=== PATIENT | female | born 1965 | race Caucasian/White ===

== ENCOUNTER 2016-07-13 11:02 | Emergency (ER) | payer SELFPAY ==
[2016-07-13] MEDS ORDERED: OXYCODONE-ACETAMINOPHEN 5-325 MG TABLET PO ONE ×2 (11:12→13:29)
--- NOTE | 2016-07-13 11:12 | ER Document Report ---
ED Medical Screen (RME) - General Stated Complaint: POSSIBLE ABSCESS Time seen by provider: 11:10 Mode of Arrival: Ambulatory Information source: Patient Notes: 51-year-old female presents to ED for a abscess to the left side of her face just above her eye which is now affecting her site. And the pain pain is sharp and throbbing with level III out of 5. She is menopausal. States she has had some hot flashes since this started and she has a history of MRSA. I have greeted and performed a rapid initial assessment of this patient. A comprehensive ED assessment and evaluation of the patient, analysis of test results and completion of medical decision making process will be conducted by an additional ED providers. TRAVEL OUTSIDE OF THE [place] IN LAST 30 DAYS: No - Related Data Allergies/Adverse Reactions: Penicillins Allergy (Unknown, Verified 01/30/16 09:28) rash Past Medical History - Past Medical History Cardiac Medical History: Reports: Hx Hypercholesterolemia, Hx Hypertension Neurological Medical History: Reports: Hx Seizures Renal/ Medical History: Reports: Hx Kidney Stones GI Medical History: Reports: Hx Diverticulitis Musculoskeltal Medical History: Reports Hx Arthritis - RA, Reports Hx Fibromyalgia Skin Medical History: Reports Hx Cellulitis Psychiatric Medical History: Reports: Hx Anxiety, Hx Depression - anxiety Traumatic Medical History: Reports: Hx Spine Fracture Past Surgical History: Reports: Hx Section, Hx Orthopedic Surgery - neck x2, Hx Tubal Ligation - Immunizations Hx Diphtheria, Pertussis, Tetanus Vaccination: Yes
--- NOTE | 2016-07-13 11:54 | ER Document Report ---
ED Eye Complaint - General Chief Complaint: Abscess Stated Complaint: POSSIBLE ABSCESS Mode of Arrival: Ambulatory Information source: Patient TRAVEL OUTSIDE OF THE [place] IN LAST 30 DAYS: No - HPI Onset: Other - scrathed the area above her eye 1 week ago but swelling and pain started 4 days ago but has become worse Eye location: Left Injury: Yes Occurred at: Home Quality of pain: Achy, Pressure, Throbbing Severity: Moderate Pain Level: 4 Contact lenses worn: No Associated symptoms: Pain, Other - pain with extraocular movement of the left eye - Related Data Allergies/Adverse Reactions: Penicillins Allergy (Unknown, Verified 07/13/16 11:12) rash Past Medical History - General Information source: Patient - Social History Smoking Status: Never Smoker Chew tobacco use (# tins/day): No Frequency of alcohol use: None Drug Abuse: None Family History: CAD, CVA, Hypertension, Reviewed & Not Pertinent Patient has suicidal ideation: No Patient has homicidal ideation: No - Past Medical History Cardiac Medical History: Reports: Hx Hypercholesterolemia, Hx Hypertension Neurological Medical History: Reports: Hx Seizures Renal/ Medical History: Reports: Hx Kidney Stones. Denies: Hx Peritoneal Dialysis GI Medical History: Reports: Hx Diverticulitis Musculoskeltal Medical History: Reports Hx Arthritis - RA, Reports Hx Fibromyalgia Skin Medical History: Reports Hx Cellulitis Psychiatric Medical History: Reports: Hx Anxiety, Hx Depression - anxiety Traumatic Medical History: Reports: Hx Spine Fracture Past Surgical History: Reports: Hx Section, Hx Orthopedic Surgery - neck x2, Hx Tubal Ligation - Immunizations Hx Diphtheria, Pertussis, Tetanus Vaccination: Yes Review of Systems - Review of Systems Constitutional: No symptoms reported EENT: See HPI. denies: Eye discharge, Tearing, Double vision Cardiovascular: No symptoms reported Respiratory: No symptoms reported Gastrointestinal: No symptoms reported Genitourinary: No symptoms reported Female Genitourinary: No symptoms reported Musculoskeletal: No symptoms reported Skin: No symptoms reported Hematologic/Lymphatic: No symptoms reported Neurological/Psychological: No symptoms reported Physical Exam - Vital signs Vitals: Temp Pulse Resp BP Pulse Ox 98.0 F 72 16 124/83 98 07/13/16 11:09 07/13/16 11:09 07/13/16 11:09 07/13/16 11:09 07/13/16 11:09 - General General appearance: Appears well, Alert In distress: None - HEENT Head: Normocephalic - Skin Skin Temperature: Warm Skin Moisture: Dry Skin Color: Normal Skin Turgor: Elastic Skin irregularity: Tender indurated area Location of irregularity: Face Character of irregularity: Erythematous Irregularity with: Swelling, Tenderness, Warmth, Induration, Inflammation. negative: Lymphangitis, Thickening, Scaling, Well defined border, Crusting, Weeping, Rough texture-sand paper, Pityriasis rosea Course - Re-evaluation Re-evalutation: 07/13/16 23:32 She is a 61-year-old female who is hemodynamically stable, no acute distress and afebrile. After review CT of the orbit there is no concern for CELLULITIS or facial sinuses of her inflammation. Patient has a history of MRSA given her microbiology studies back in March patient will be discharged home for coverage of strep, MRSA and H influenza given it is an EMT infection. Discussed with the patient the inability to use warm packs to help heal the area as well as Motrin for pain. Patient follow-up with her primary care provider in 10-14 days towards the end of her antibiotic course. She is also encouraged to follow up with an parking meter mechanic this week. - Vital Signs Vital signs: Temp Pulse Resp BP Pulse Ox 98.0 F 70 16 125/92 H 97 07/13/16 14:46 07/13/16 14:46 07/13/16 14:46 07/13/16 14:46 07/13/16 14:46 - Laboratory Result Diagrams: 07/13/16 12:10 07/13/16 12:10 Laboratory results interpreted by me: 07/13/16 12:10 RDW 15.2 H - Diagnostic Test Radiology reviewed: Image reviewed, Reports reviewed Discharge - Discharge Clinical Impression: Periorbital cellulitis of left eye Condition: Good Disposition: HOME, SELF-CARE Instructions: Cephalexin ([facility]), MRSA Cellulitis ([facility]), Clindamycin ([facility]), Oral Narcotic Medication ([facility]) Prescriptions: Cephalexin Monohydrate [Keflex 500 mg Capsule] 500 mg PO BID 14 Days Clindamycin HCl 300 mg PO Q8H 14 Days Oxycodone HCl/Acetaminophen [Percocet 5-325 mg Tablet] 1 - 2 tab PO Q4H PRN #15 tablet PRN Reason: Referrals: WILBERTO GILLESPIE [Primary Care Provider] - Follow up in 1 week GERALD BUI DO [ACTIVE STAFF] - Follow up in 1 week (Please see an opthamologist when you complete your antibiotics or in 10 days)
[2016-07-13 12:44] LABS: ABSOLUTE EOSINOPHILS # (AUTO) 0.1 10^3/uL (0.0-0.6); ABSOLUTE LYMPHOCYTES (AUTO) 1.6 10^3/uL (0.5-4.7); ABSOLUTE MONOCYTES (AUTO) 0.8 10^3/uL (0.1-1.4); ABSOLUTE NEUT (AUTO) 6.4 10^3/uL (1.7-8.2); BASOPHILS % (AUTO) 0.5 % (0-2); EOSINOPHILS % (AUTO) 0.9 % (0-6); HEMATOCRIT 40.7 % (36.0-47.0); HEMOGLOBIN 13.2 g/dL (12.0-15.5); HGB HCT DIFFERENCE -1.1; LYMPHOCYTES % (AUTO) 17.8 % (13-45); MEAN CORPUSCULAR HEMOGLOBIN 28.4 pg (27.0-33.4); MEAN CORPUSCULAR HGB CONC 32.6 g/dL (32.0-36.0); MEAN CORPUSCULAR VOLUME 87 fl (80-97); MONOCYTES % (AUTO) 8.8 % (3-13); RED BLOOD COUNT 4.67 10^6/uL (3.72-5.28); RED CELL DISTRIBUTION WIDTH 15.2 % (11.5-14.0); WHITE BLOOD COUNT 8.9 10^3/uL (4.0-10.5)
[2016-07-13 12:57] LABS: ALANINE AMINOTRANSFERASE 17 U/L (9-52); ALBUMIN 3.9 g/dL (3.5-5.0); ALKALINE PHOSPHATASE 72 U/L (38-126); ANION GAP 11 (5-19); ASPARTATE AMINO TRANSFERASE 26 U/L (14-36); BILIRUBIN,TOTAL 0.3 mg/dL (0.2-1.3); BLOOD UREA NITROGEN 18 mg/dL (7-20); CALCIUM 9.7 mg/dL (8.4-10.2); CARBON DIOXIDE 27 mmol/L (22-30); CHLORIDE 102 mmol/L (98-107); CREATININE RESULT 0.71 mg/dL (0.52-1.25); GLUCOSE 102 mg/dL (75-110); POTASSIUM 4.6 mmol/L (3.6-5.0); SODIUM 139.8 mmol/L (137-145); TOTAL PROTEIN 6.8 g/dL (6.3-8.2)
[2016-07-13] MEDS ORDERED: METOCLOPRAMIDE HCL 10 MG TABLET PO ONE (13:29)
[2016-07-13] MEDS ORDERED: CEPHALEXIN 500 MG CAPSULE PO ONE (14:15)
[2016-07-13] MEDS ORDERED: CLINDAMYCIN HCL 150 MG CAPSULE PO ONE (14:15)
[2016-07-13 15:04] VITALS: BP 125/92
== END 2016-07-13 14:55 | disposition home or self-care (01) ==
LOC: ER 11:02
DX: L03.213 Periorbital cellulitis (principal); I10 Essential (primary) hypertension; Z88.0 Allergy status to penicillin; Z86.14 Personal history of Methicillin resistant Staphylococcus aureus infection
CPT/HCPCS: 36415; 70481; 80053; 85025; 99284

== ENCOUNTER 2016-10-06 20:04 | Emergency (ER) | payer SELFPAY ==
[2016-10-06] MEDS ORDERED: HYDROMORPHONE HCL INJ/PF 2 MG/ML AMPULE IM ONE (22:18)
[2016-10-06] MEDS ORDERED: KETOROLAC TROMETHAMINE 60 MG/2 ML SDV IM ONE (22:18)
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
[2016-10-06 23:59] VITALS: BP 147/80
== END 2016-10-06 23:47 | disposition home or self-care (01) ==
LOC: ER 20:04
DX: M54.42 Lumbago with sciatica, left side (principal); M54.9 Dorsalgia, unspecified; M25.552 Pain in left hip; R20.0 Anesthesia of skin
CPT/HCPCS: 99283; 96372; 73502; J1885; J1170

== ENCOUNTER 2016-10-22 18:01 | Emergency (ER) | payer SELFPAY | END 2016-10-22 18:10 | disposition left against medical advice (07) | LOC: ER 18:01 | DX: Z53.21 Procedure and treatment not carried out due to patient leaving prior to being seen by health care provider (principal) ==

== ENCOUNTER 2017-05-23 18:17 | Emergency (ER) | payer SELFPAY ==
--- NOTE | 2017-05-23 19:19 | ER Document Report ---
ED General - General Chief Complaint: Back Pain Stated Complaint: BACK PAIN Time Seen by Provider: 05/23/17 18:20 Mode of Arrival: Medic Information source: Patient Notes: 52-year-old female history of 2 disc bulges who has been seen by surgeons at [facility] for continued back pain presents with complaints of spasms after she bent over and felt a pop sensation in her mid back. Patient notes she has had difficulty with left leg numbness for the past few months. Has not urinated on herself, but states that she has had constipation issues over the past few months as well TRAVEL OUTSIDE OF THE [place] IN LAST 30 DAYS: No - HPI Onset: Just prior to arrival Onset/Duration: Sudden Quality of pain: Achy Severity: Moderate Pain Level: 4 Associated symptoms: Other Exacerbated by: Movement Relieved by: Denies Similar symptoms previously: Yes Recently seen / treated by doctor: Yes - Related Data Allergies/Adverse Reactions: Penicillins Allergy (Unknown, Verified 07/13/16 11:12) rash Past Medical History - Social History Smoking Status: Never Smoker Cigarette use (# per day): No Chew tobacco use (# tins/day): No Smoking Education Provided: No Frequency of alcohol use: None Drug Abuse: None Family History: CAD, CVA, Hypertension, Reviewed & Not Pertinent Patient has suicidal ideation: No Patient has homicidal ideation: No - Past Medical History Cardiac Medical History: Reports: Hx Hypercholesterolemia, Hx Hypertension Neurological Medical History: Reports: Hx Seizures Renal/ Medical History: Reports: Hx Kidney Stones. Denies: Hx Peritoneal Dialysis GI Medical History: Reports: Hx Diverticulitis Musculoskeltal Medical History: Reports Hx Arthritis - RA, Reports Hx Fibromyalgia Skin Medical History: Reports Hx Cellulitis Psychiatric Medical History: Reports: Hx Anxiety, Hx Depression - anxiety Traumatic Medical History: Reports: Hx Spine Fracture Past Surgical History: Reports: Hx Section, Hx Orthopedic Surgery - neck x2, Hx Tubal Ligation - Immunizations Hx Diphtheria, Pertussis, Tetanus Vaccination: Yes Review of Systems - Review of Systems Notes: REVIEW OF SYSTEMS: CONSTITUTIONAL : Denies fever, chills, or sweats. Denies recent illness. EENT: Denies eye, ear, throat, or mouth pain or symptoms. Denies nasal or sinus congestion or discharge. Denies throat, tongue, or mouth swelling or difficulty swallowing. CARDIOVASCULAR: Denies chest pain. Denies palpitations or racing or irregular heart beat. Denies ankle edema. RESPIRATORY: Denies cough, cold, or chest congestion. Denies shortness of breath, difficulty breathing, or wheezing. GASTROINTESTINAL: Denies abdominal pain or distention. Denies nausea, vomiting , or diarrhea. Denies blood in vomitus, stools, or per rectum. Denies black, tarry stools. Denies constipation. GENITOURINARY: Denies difficulty urinating, painful urination, burning, frequency, blood in urine, or discharge. FEMALE GENITOURINARY: Denies vaginal bleeding, heavy or abnormal periods, irregular periods. Denies vaginal discharge or odor. MUSCULOSKELETAL admits to low back pain left leg pain SKIN: Denies rash, lesions or sores. HEMATOLOGIC : Denies easy bruising or bleeding. LYMPHATIC: Denies swollen, enlarged glands. NEUROLOGICAL: Denies confusion or altered mental status. Denies passing out or loss of consciousness. Denies dizziness or lightheadedness. Denies headache. Denies weakness or paralysis or loss of use of either side. Denies problems with gait or speech. Denies sensory loss, numbness, or tingling. Denies seizures. PSYCHIATRIC: Denies anxiety or stress. Denies depression, suicidal ideation, or homicidal ideation. ALL OTHER SYSTEMS REVIEWED AND NEGATIVE. PHYSICAL EXAMINATION: GENERAL: Well-appearing, well-nourished and in no acute distress. HEAD: Atraumatic, normocephalic. EYES: Pupils equal round and reactive to light, extraocular movements intact, conjunctiva are normal. ENT: Nares patent, oropharynx clear without exudates. Moist mucous membranes. NECK: Normal range of motion, supple without lymphadenopathy LUNGS: Breath sounds clear to auscultation bilaterally and equal. No wheezes rales or rhonchi. HEART: Regular rate and rhythm without murmurs ABDOMEN: Soft, nontender, nondistended abdomen. No guarding, no rebound. No masses appreciated. Female : deferred Musculoskeletal: pt unable to sit up without assistance, tender i nthe L3-L5 region NEUROLOGICAL: Cranial nerves grossly intact. Normal speech, normal gait. Normal sensory, motor exams PSYCH: Normal mood, normal affect. SKIN: Warm, Dry, normal turgor, no rashes or lesions noted. Dictation was performed using [employer] voice recognition software Physical Exam - Vital signs Vitals: Temp Pulse Resp BP Pulse Ox 97.9 F 69 20 165/91 H 97 05/23/17 18:28 05/23/17 18:28 05/23/17 18:28 05/23/17 18:28 05/23/17 18:28 Course - Re-evaluation Re-evalutation: 05/23/17 19:19 Given patient's complaint of numbness weakness left lower extremity MRI has been ordered and is pending at this time 05/23/17 21:47 MRI results reported to patient , attempting ot reach patients surgeon 05/23/17 21:51 [facility] states they dont know how to contact the surgeon 05/23/17 22:02 I was able to contact Dr Chandler, he does request dc home for follow up at 830 tomorrow morning, he states this is not an emergent surgical issue 05/23/17 23:11 s patient is happy with this plan, will give another dose pain meds prior to discharge home 05/23/17 23:16 After performing a Medical Screening Examination, I estimate there is LOW risk for EXPANDING OR RUPTURED ABDOMINAL AORTIC ANEURYSM, CAUDA EQUINA SYNDROME, EPIDURAL MASS LESION, or HERNIATED DISK CAUSING SEVERE SPINAL STENOSIS, thus I consider the discharge disposition reasonable. I have reevaluated this patient multiple times and no significant life threatening changes are noted. The patient and I have discussed the diagnosis and risks, and we agree with discharging home and close follow-up. We also discussed returning to the Emergency Department immediately if new or worsening symptoms occur with the understanding that symptoms and presentations can change. We have discussed the symptoms which are most concerning (e.g., saddle anesthesia, urinary or bowel incontinence or retention, changing or worsening pain) that necessitate immediate return. - Vital Signs Vital signs: Temp Pulse Resp BP Pulse Ox 97.9 F 69 20 165/91 H 97 05/23/17 18:28 05/23/17 18:28 05/23/17 18:28 05/23/17 18:28 05/23/17 18:28 - Diagnostic Test Radiology reviewed: Image reviewed, Reports reviewed - Report imaging will be provided to patient Discharge - Discharge Clinical Impression: L4-L5 disc bulge, Left leg paresthesias Condition: Stable Disposition: HOME, SELF-CARE Referrals: KADEEM CHANDLER DO [Primary Care Provider] - Follow up tomorrow
[2017-05-23] MEDS ORDERED: HYDROMORPHONE HCL INJ/PF 2 MG/ML AMPULE IV ONE ×2 (19:46→23:11)
[2017-05-23] MEDS ORDERED: DEXAMETHASONE SOD PHOS INJ 10 MG/1 ML VIAL IV ONE (19:46)
--- NOTE | 2017-05-23 21:35 | RADIOLOGY REPORT (SQ) ---
EXAM DESCRIPTION: MRI LUMBAR SPINE WITHOUT COMPLETED DATE/TIME: 05/23/2017 9:22 pm REASON FOR STUDY: back pain, left leg numb COMPARISON: None. TECHNIQUE: Sagittal and Axial imaging includes T1, T2, STIR and gradient echo sequences. Coronal T2/ HASTE imaging. LIMITATIONS: None. FINDINGS: VISUALIZED UPPER ABDOMEN: Limited evaluation. No acute or suspicious findings suggested. SEGMENTATION: No transitional anatomy. The lowest well-developed disc space is labeled L5-S1. ALIGNMENT: Anatomic. VERTEBRAE: Intact. BONE MARROW: Normal. No marrow replacement or reactive changes. DISC SIGNAL: Loss of T2 signal L5-S1. POSTERIOR ELEMENTS: Generally intact. No pars defect evident. HARDWARE: None in the spine. CORD AND CONUS: Normal in size and signal intensity. Conus at the appropriate level. SOFT TISSUES: No aortic aneurysm seen. No bulky retroperitoneal adenopathy or mass. No paraspinal mas s or fluid. L1-L2: No significant spinal stenosis or exit foraminal stenosis. L2-L3: Mild disc bulge. Mild ligamentous and facet hypertrophy. Mild narrowing of the exit foramina . L3-L4: No significant spinal stenosis or exit foraminal stenosis. L4-L5: No significant spinal stenosis or exit foraminal stenosis. L5-S1: Large left paracentral to foraminal disc extrusion. Deviation of the left L5 root centrally w ith compression. Flattening of the thecal sac leftward. LOWER THORACIC: No significant finding SACRUM: Visualized upper sacrum intact. OTHER: No other significant findings. IMPRESSION: Large left paracentral to foraminal disc extrusion with deviation and flattening of the left L5 root centrally and compression of the thecal sac along the leftward aspect. TECHNICAL DOCUMENTATION: JOB ID: [id number] [employer]- All Rights Reserved
[2017-05-23] MEDS ORDERED: KETOROLAC TROMETHAMINE INJ/PF 30 MG/1 ML SDV IV ONE (21:51)
[2017-05-23] MEDS ORDERED: FENTANYL CITRATE INJ/PF 100 MCG/2 ML AMPUL IV ONE (22:03)
[2017-05-23] MEDS ORDERED: HYDROCODONE/ACETAMINOPHEN 5-325 MG 6 TAB/DSPK PO PRN (23:17)
[2017-05-23 23:43] VITALS: BP 149/82
== END 2017-05-23 23:46 | disposition home or self-care (01) ==
LOC: ER 18:17
DX: M51.26 Other intervertebral disc displacement, lumbar region (principal); R20.0 Anesthesia of skin; M54.9 Dorsalgia, unspecified
CPT/HCPCS: 96376; 99284; 96374; 96375; 72148; J3010; J1885; J1170; J1100

== ENCOUNTER 2017-07-31 15:00 | Emergency (ER) | payer SELFPAY ==
--- NOTE | 2017-07-31 16:42 | RADIOLOGY REPORT (SQ) ---
EXAM DESCRIPTION: FOOT LEFT COMPLETE COMPLETED DATE/TIME: 07/31/2017 4:12 pm REASON FOR STUDY: pain COMPARISON: None. NUMBER OF VIEWS: Three views. TECHNIQUE: AP, lateral and oblique radiographic images acquired of the left foot. LIMITATIONS: None. FINDINGS: MINERALIZATION: Normal. BONES: No acute fracture or dislocation. No worrisome bone lesions. JOINTS: No effusions. SOFT TISSUES: No soft tissue swelling. No foreign body. OTHER: No other significant finding. IMPRESSION: NEGATIVE STUDY OF THE LEFT FOOT. NO RADIOGRAPHIC EVIDENCE OF ACUTE INJURY. TECHNICAL DOCUMENTATION: JOB ID: [id number] [employer]- All Rights Reserved
--- NOTE | 2017-07-31 16:43 | ER Document Report ---
ED Extremity Problem, Lower - General Chief Complaint: Foot Injury Stated Complaint: FOOT INJURY Time Seen by Provider: 07/31/17 16:21 Notes: 52 yo female c/o left foot pain x 5 days. pain started after wearing high heeled shoes. + pain with weight bearing. having to walk on toes due to pain, now calf is hurting. mild swelling around ankle. no recent trauma, long trip, surgery. no cough or shortness of breath TRAVEL OUTSIDE OF THE [place] IN LAST 30 DAYS: No - HPI Patient complains to provider of: Pain Location: Foot - left Recent injury: No Exacerbated by: Walking Relieved by: Nothing - Related Data Allergies/Adverse Reactions: Penicillins Allergy (Unknown, Verified 07/31/17 15:02) rash Past Medical History - General Information source: Patient - Social History Smoking Status: Current Every Day Smoker Frequency of alcohol use: None Drug Abuse: None Lives with: Family Family History: CAD, CVA, Hypertension, Reviewed & Not Pertinent - Past Medical History Cardiac Medical History: Reports: Hx Hypercholesterolemia, Hx Hypertension Neurological Medical History: Reports: Hx Seizures Renal/ Medical History: Reports: Hx Kidney Stones. Denies: Hx Peritoneal Dialysis GI Medical History: Reports: Hx Diverticulitis Musculoskeltal Medical History: Reports Hx Arthritis - RA, Reports Hx Fibromyalgia Skin Medical History: Reports Hx Cellulitis Psychiatric Medical History: Reports: Hx Anxiety, Hx Depression - anxiety Traumatic Medical History: Reports: Hx Spine Fracture Past Surgical History: Reports: Hx Section, Hx Orthopedic Surgery - neck x2, Hx Tubal Ligation - Immunizations Hx Diphtheria, Pertussis, Tetanus Vaccination: Yes Review of Systems - Review of Systems Constitutional: No symptoms reported EENT: No symptoms reported Cardiovascular: No symptoms reported Respiratory: No symptoms reported Gastrointestinal: No symptoms reported Genitourinary: No symptoms reported Female Genitourinary: No symptoms reported Musculoskeletal: No symptoms reported Skin: No symptoms reported Hematologic/Lymphatic: No symptoms reported Neurological/Psychological: No symptoms reported Physical Exam - Vital signs Vitals: Temp Pulse Resp BP Pulse Ox 99.1 F 80 20 150/84 H 98 07/31/17 15:24 07/31/17 15:24 07/31/17 15:24 07/31/17 15:24 07/31/17 15:24 Interpretation: Normal - General General appearance: Appears well, Alert - HEENT Head: Normocephalic, Atraumatic Eyes: Normal Pupils: PERRL - Respiratory Respiratory status: No respiratory distress Chest status: Nontender Breath sounds: Normal Chest palpation: Normal - Cardiovascular Rhythm: Regular Heart sounds: Normal auscultation Murmur: No - Abdominal Inspection: Normal Distension: No distension Bowel sounds: Normal Tenderness: Nontender Organomegaly: No organomegaly - Back Back: Normal, Nontender - Extremities General upper extremity: Normal inspection, Nontender, Normal color, Normal ROM , Normal temperature Knee: Normal, Nontender Calf: Normal, Nontender Foot: Other - left foot warm to touch. no erythema or echymosis. no navicular pain. no dorsal foot pain. no bony irregularity. no posterior calcaneous pain. + focal pain to medial plantar arch and hind foot+ tenderness over medial malleouls. - Neurological Neuro grossly intact: Yes Cognition: Normal Orientation: AAOx4 [place] Coma Scale Eye Opening: Spontaneous [place] Coma Scale Verbal: Oriented Arturo Coma Scale Motor: Obeys Commands Arturo Coma Scale Total: 15 Speech: Normal Motor strength normal: LUE, RUE, LLE, RLE Sensory: Normal - Psychological Associated symptoms: Normal affect, Normal mood - Skin Skin Temperature: Warm Skin Moisture: Dry Skin Color: Normal Course - Re-evaluation Re-evalutation: 07/31/17 16:59 xray is negative for bony injury. no spurs. These results discussed with patient. no circulatory compromise. H&P c/w with possible strain of the ligaments in the arch of the foot. will recommend conservative treatment with shilo, ice, elevation and NSAIDs. no weight bearing for several days. PCM follow up if pain persists. ED return precautions discussed with pt. pt agreeable with plan and stable for discharge - Vital Signs Vital signs: Temp Pulse Resp BP Pulse Ox 99.1 F 80 20 150/84 H 98 07/31/17 15:24 07/31/17 15:24 07/31/17 15:24 07/31/17 15:24 07/31/17 15:24 Discharge - Discharge Clinical Impression: Left foot pain Condition: Stable Disposition: HOME, SELF-CARE Instructions: Tendon Strain ([facility]), Shilo Wrap ([facility]), Ice & Elevation ([facility]), Use of Crutches ([facility]), Ibuprofen (General) ([facility]) Additional Instructions: Your xray is negative for bony injury I am treating your for a strain of the ligaments of the arch of the foot wear shilo for comfort and support use crutches until able to bear weight without pain keep foot elevated as much as possible continue your current meds as prescribed follow up with primary care if symptoms persist more than 10 days
[2017-07-31 17:21] VITALS: BP 143/85
== END 2017-07-31 17:23 | disposition home or self-care (01) ==
LOC: ER 15:00
DX: M79.672 Pain in left foot (principal); M79.89 Other specified soft tissue disorders; M25.572 Pain in left ankle and joints of left foot; F17.200 Nicotine dependence, unspecified, uncomplicated; X58.XXXA Exposure to other specified factors, initial encounter
CPT/HCPCS: 99283

== ENCOUNTER 2018-06-03 03:45 | Emergency (ER) | payer SELFPAY ==
[2018-06-03] MEDS ORDERED: CLINDAMYCIN 600 MG/D5W RTU 600 MG/50 ML RTUPB IV ONE (04:13)
[2018-06-03] MEDS ORDERED: RINGERS SOLUTION,LACTATED 1,000 ML IV ONE (04:15)
[2018-06-03] MEDS ORDERED: MORPHINE SULFATE 10 MG/ML INJ IV ONE (04:16)
[2018-06-03] MEDS ORDERED: ONDANSETRON HCL INJ/PF 4 MG/2 ML SDV IV ONE (04:16)
[2018-06-03 04:21] LABS: ABSOLUTE EOSINOPHILS # (AUTO) 0.1 10^3/uL (0.0-0.6); ABSOLUTE NEUT (AUTO) 9.5 10^3/uL (1.7-8.2); BASOPHILS % (AUTO) 0.3 % (0-2); EOSINOPHILS % (AUTO) 0.8 % (0-6); HEMATOCRIT 39.4 % (36.0-47.0); HEMOGLOBIN 13.3 g/dL (12.0-15.5); LYMPHOCYTES % (AUTO) 15.7 % (13-45); MEAN CORPUSCULAR HEMOGLOBIN 29.4 pg (27.0-33.4); MEAN CORPUSCULAR HGB CONC 33.8 g/dL (32.0-36.0); MEAN CORPUSCULAR VOLUME 87 fl (80-97); PLATELET COUNT 205 10^3/uL (150-450); RED BLOOD COUNT 4.53 10^6/uL (3.72-5.28); RED CELL DISTRIBUTION WIDTH 15.1 % (11.5-14.0); SEGMENTED NEUTROPHILS % (AUTO) 75.2 % (42-78); TOTAL CELLS COUNTED % (AUTO) 100 %; WHITE BLOOD COUNT 12.6 10^3/uL (4.0-10.5)
--- NOTE | 2018-06-03 04:27 | ER Document Report ---
ED General - General Chief Complaint: Abscess Stated Complaint: ABSCESS Time Seen by Provider: 06/03/18 04:12 Mode of Arrival: Ambulatory Information source: Patient, Relative, COUNT INCLUDES THE [facility] Records Notes: 53-year-old female with hypertension, hyperlipidemia, fibromyalgia, seizures, MRSA, previous history of CVA presents with complaint of facial pain, ear pain and difficulty swallowing. Patient states that 3 days ago she noticed redness on her chin. She states that it started out as a small pimple which she picked. She states progressively over the last few days the area has become painful, red and it has become progressively more difficult to swallow, pain is now spreading to the left side of her face and left ear. TRAVEL OUTSIDE OF THE [place] IN LAST 30 DAYS: No - HPI Onset: Other Onset/Duration: Gradual, Persistent, Worse Quality of pain: Throbbing Severity: Moderate Associated symptoms: denies: Chest pain, Chills, Fever, Nausea, Vomiting, Shortness of breath Exacerbated by: Movement, Other - Opening mouth Relieved by: Denies Similar symptoms previously: Yes Recently seen / treated by doctor: No - Related Data Allergies/Adverse Reactions: Penicillins Allergy (Unknown, Verified 07/31/17 15:02) rash Past Medical History - General Information source: Patient, Relative, COUNT INCLUDES THE [facility] Records - Social History Smoking Status: Current Every Day Smoker Cigarette use (# per day): Yes - 10 Smoking Education Provided: Yes - Smoking cessation counseling was provided for 4 minutes at the bedside Frequency of alcohol use: None Drug Abuse: None Lives with: Family Family History: CAD, CVA, Hypertension, Reviewed & Not Pertinent Patient has suicidal ideation: No Patient has homicidal ideation: No - Past Medical History Cardiac Medical History: Reports: Hx Hypercholesterolemia, Hx Hypertension Neurological Medical History: Reports: Hx Seizures Renal/ Medical History: Reports: Hx Kidney Stones. Denies: Hx Peritoneal Dialysis GI Medical History: Reports: Hx Diverticulitis Musculoskeletal Medical History: Reports Hx Arthritis - RA, Reports Hx Fibromyalgia Skin Medical History: Reports Hx Cellulitis Psychiatric Medical History: Reports: Hx Anxiety, Hx Depression - anxiety Traumatic Medical History: Reports: Hx Spine Fracture Past Surgical History: Reports: Hx Section, Hx Orthopedic Surgery - neck x2, Hx Tubal Ligation - Immunizations Hx Diphtheria, Pertussis, Tetanus Vaccination: Yes Review of Systems - Review of Systems Notes: REVIEW OF SYSTEMS: CONSTITUTIONAL : Denies fever, chills, or sweats. Denies recent illness. Denies weight loss, recent hospitalizations. EENT: Denies visual changes, eye pain. + sore throat, +difficulty swallowing. CARDIOVASCULAR: Denies chest pain. Denies palpitations. Denies lower extremity edema. RESPIRATORY: Denies cough. Denies shortness of breath, wheezing. GASTROINTESTINAL: Denies abdominal pain or distention. Denies nausea, vomiting , or diarrhea. Denies blood in vomitus, stools, or per rectum. Denies black, tarry stools. Denies constipation. GENITOURINARY: Denies difficulty urinating, painful urination, frequency, blood in urine, or vaginal discharge. MUSCULOSKELETAL: Denies back or neck pain or stiffness. Denies joint pain or swelling. SKIN: + Abscess chin HEMATOLOGIC : Denies easy bruising or bleeding. LYMPHATIC: Denies swollen glands. NEUROLOGICAL: Denies confusion or altered mental status. Denies loss of consciousness. Denies dizziness or lightheadedness. Denies headache. Denies weakness or paralysis. Denies problems difficulty with ambulation, slurred speech. Denies sensory loss, numbness, or tingling. Denies seizures. PSYCHIATRIC: Denies anxiety or stress. Denies depression, suicidal ideation, or homicidal ideation. Denies visual or auditory hallucinations. Physical Exam - Vital signs Vitals: Temp Pulse Resp BP Pulse Ox 98.4 F 86 16 151/85 H 100 06/03/18 03:49 06/03/18 03:49 06/03/18 03:49 06/03/18 03:49 06/03/18 03:49 Interpretation: Hypertensive. No: Febrile - Notes Notes: PHYSICAL EXAMINATION: GENERAL: Appears to be in pain, no acute distress. HEAD: Erythematous tender area on the chin without extension of erythema to the face or neck. EYES: Pupils equal round and reactive to light, extraocular movements intact, conjunctiva are normal. ENT: Nares patent, oropharynx clear without exudates. Moist mucous membranes.No sublingual edema. Multiple dental caries. Trismus. NECK: Normal range of motion, supple without lymphadenopathy. No stridor LUNGS: Breath sounds clear to auscultation bilaterally and equal. No wheezes rales or rhonchi. HEART: Regular rate and rhythm without murmurs ABDOMEN: Soft, nontender, nondistended abdomen. No guarding, no rebound. No masses appreciated. Female : deferred Musculoskeletal: Normal range of motion, no pitting or edema. No cyanosis. NEUROLOGICAL: Cranial nerves grossly intact. Normal speech, normal gait. Normal sensory, motor exams PSYCH: Normal mood, normal affect. SKIN: Erythematous lesion to the chin. Course - Re-evaluation Re-evalutation: Laboratory 06/03/18 06/03/18 04:07 04:07 WBC 12.6 H RBC 4.53 Hgb 13.3 Hct 39.4 MCV 87 MCH 29.4 MCHC 33.8 RDW 15.1 H Plt Count 205 Seg Neutrophils % 75.2 Lymphocytes % 15.7 Monocytes % 8.0 Eosinophils % 0.8 Basophils % 0.3 Absolute Neutrophils 9.5 H Absolute Lymphocytes 2.0 Absolute Monocytes 1.0 Absolute Eosinophils 0.1 Absolute Basophils 0.0 Sodium 141.5 Potassium 3.8 Chloride 105 Carbon Dioxide 23 Anion Gap 14 BUN 10 Creatinine 0.49 L Est GFR ( Amer) > 60 Est GFR (Non-Af Amer) > 60 Glucose 152 H Calcium 9.[address] 06/03/18 04:13 IMPRESSION: Superficial inflammatory changes and phlegmon, superficial to the mandible and minimally extending to the submandibular region. No discrete or defined abscess. A few likely reactive adjacent lymph nodes are present. TECHNICAL DOCUMENTATION: Quality ID # 436: Final reports with documentation of one or more dose reduction techniques (e.g., Automated exposure control, adjustment of the mA and/or kV according to patient size, use of iterative reconstruction technique) copyright 2011 [employer]- All Rights Reserved Temp Pulse Resp BP Pulse Ox 98.4 F 86 16 151/85 H 100 06/03/18 03:49 06/03/18 03:49 06/03/18 03:49 06/03/18 03:49 06/03/18 03:49 06/03/18 05:44 06/03/18 05:45 53-year-old female with hypertension, hyperlipidemia, fibromyalgia, seizures, MRSA, previous history of CVA presents with complaint of facial pain, ear pain and difficulty swallowing. Patient states that 3 days ago she noticed redness on her chin. She states that it started out as a small pimple which she picked. She states progressively over the last few days the area has become painful, red and it has become progressively more difficult to swallow, pain is now spreading to the left side of her face and left ear. Upon arrival vital signs reviewed patient is afebrile, mildly hypertensive, she is not tachycardic or hypoxic. Exam is significant for erythema of the chin with no associated fluctuance, induration. No evidence of Risa's, necrotizing gingivitis. CT of the neck with contrast was obtained and showed no definitive abscess but does show a superficial phlegmon. Patient did receive IV clindamycin during her ED course. She was encouraged to apply warm compresses and complete her antibiotic course. Patient warned that if she was unable to tolerate her antibiotic had spreading of the redness, worsening of pain or inability to swallow she should return to the emergency room immediately. Patient was evaluated and treated as appropriate for the patient's presenting symptoms and complaint, with consideration of any critical or life threatening conditions that may be associated with their obtained history and exam as noted above. All results were discussed with patient and her . patient provided the opportunity to ask questions, and express concerns. Patient was educated on treatments based on their presumed diagnosis as noted above. At this time we will discharge the patient with return precautions and follow-up recommendations. Verbal discharge instructions given a the bedside. Medication warnings reviewed. Patient is in agreement with this plan and has verbalized understanding of return precautions. After careful consideration I feel that that patient can be safely discharged from the emergency department, they were advised to followup with a primary care physician in 2-3 days. Dictation on this chart was performed using voice recognition software and may result in unintended grammatical, spelling, syntax or errors. - Vital Signs Vital signs: Temp Pulse Resp BP Pulse Ox 98.4 F 86 16 151/85 H 100 06/03/18 03:49 06/03/18 03:49 06/03/18 03:49 06/03/18 03:49 06/03/18 03:49 - Laboratory Result Diagrams: 06/03/18 04:07 06/03/18 04:07 Laboratory results interpreted by me: 06/03/18 06/03/18 04:07 04:07 WBC 12.6 H RDW 15.1 H Absolute Neutrophils 9.5 H Creatinine 0.49 L Glucose 152 H - Diagnostic Test Radiology reviewed: Image reviewed, Reports reviewed Discharge - Discharge Clinical Impression: Facial cellulitis, Phlegmon, Facial pain Hypertension Qualifiers: Hypertension type: unspecified Qualified Code(s): I10 - Essential (primary) hypertension Condition: Good Disposition: HOME, SELF-CARE Instructions: Cellulitis ([facility]), Cephalexin ([facility]), Oral Narcotic Medication ([facility] ), Trimethoprim-Sulfa ([facility]) Additional Instructions: The rash is likely due to infection of your skin. You need to take the antibiotics as prescribed. Do not stop even if the rash goes away until you have completed all the antibiotics. The area of redness was traced out here in the emergency department with a marking pen. You need to return to emergency department if the redness spreads outside of this area by more than 2 cm in any direction. You should also return if you develop fevers with temperature greater than 101, persistent vomiting, worsening pain, or have any other symptoms that are concerning to you. Prescriptions: Cephalexin Monohydrate [Keflex 500 mg Capsule] 500 mg PO BID 7 Days #14 capsule Hydrocodone/Acetaminophen [Thorofare 5-325 mg Tablet] 1 tab PO Q6H #12 tablet Ondansetron [Zofran Odt 4 mg Tablet] 1 - 2 tab PO Q4H PRN #15 tab.rapdis PRN Reason: For Nausea/Vomiting Sulfamethoxazole/Trimethoprim [Bactrim Ds Tablet] 1 each PO BID #14 tablet Forms: Elevated Blood Pressure, Smoking Cessation Education Referrals: WILBERTO GILLESPIE PA [Primary Care Provider] - Follow up as needed
[2018-06-03 04:39] LABS: ANION GAP 14 (5-19); BLOOD UREA NITROGEN 10 mg/dL (7-20); CALCIUM 9.9 mg/dL (8.4-10.2); CARBON DIOXIDE 23 mmol/L (22-30); CHLORIDE 105 mmol/L (98-107); GLUCOSE 152 mg/dL (75-110); POTASSIUM 3.8 mmol/L (3.6-5.0); SODIUM 141.5 mmol/L (137-145)
--- NOTE | 2018-06-03 05:19 | RADIOLOGY REPORT (SQ) ---
EXAM DESCRIPTION: CT NECK CHEST WITH IV CONTRAST COMPLETED DATE/TME: 06/03/2018 04:13 CLINICAL HISTORY: 53 years, Female, abscess to chin. left ear pain, difficulty swallowing. COMPARISON: None. TECHNIQUE: 262 Images stored on PACS. All CT scanners at this facility use dose modulation, iterative reconstruction, and/or weight based dosing when appropriate to reduce radiation dose to as low as reasonably achievable (ALARA). [facility]: Dose Right [facility]: CareDose [facility]: Dose Right [facility]: Teradose 4D [facility]: [employer] LIMITATIONS: None. FINDINGS: Limited evaluation of brain parenchyma is unremarkable. The globes are intact. The paranasal sinuses and mastoid air cells are well aerated. The epiglottis and aryepiglottic folds are normal. The prevertebral soft tissues are normal. The airway is widely patent. The parotid and submandibular glands are unremarkable. Nonspecific nonenlarged cervical chain nodes are present bilaterally. The visualized thyroid gland enhances normally. Limited evaluation of the lung apices is unremarkable. No discrete enhancing abnormality. Postsurgical change of the cervical spine is noted. Superficial inflammatory change and phlegmon, superficial to the mandible and submandibular regions with a few nonenlarged, likely reactive submitted tubular chain lymph nodes. No discrete or defined abscess. IMPRESSION: Superficial inflammatory changes and phlegmon, superficial to the mandible and minimally extending to the submandibular region. No discrete or defined abscess. A few likely reactive adjacent lymph nodes are present. TECHNICAL DOCUMENTATION: Quality ID # [id number]: Final reports with documentation of one or more dose reduction techniques (e.g., Automated exposure control, adjustment of the mA and/or kV according to patient size, use of iterative reconstruction technique) copyright 2011 [employer]- All Rights Reserved
[2018-06-03] MEDS ORDERED: HYDROMORPHONE HCL INJ/PF 2 MG/ML AMPULE IV ONE (05:37)
[2018-06-03 06:39] VITALS: BP 170/91
== END 2018-06-03 05:54 | disposition home or self-care (01) ==
LOC: ER 03:45
DX: L03.211 Cellulitis of face (principal); L02.01 Cutaneous abscess of face; I10 Essential (primary) hypertension; Z86.14 Personal history of Methicillin resistant Staphylococcus aureus infection; R51 Headache; R13.10 Dysphagia, unspecified; H92.02 Otalgia, left ear; Z88.0 Allergy status to penicillin; F17.210 Nicotine dependence, cigarettes, uncomplicated; Z71.6 Tobacco abuse counseling
CPT/HCPCS: 99406; 99284; 96375; 96365; 36415; 85025; 80048; 70491; J2270; J1170; J2405; J7120

== ENCOUNTER 2018-06-03 23:11 | Inpatient (IN) | payer SELFPAY ==
[2018-06-04] MEDS ORDERED: FENTANYL CITRATE INJ/PF 100 MCG/2 ML AMPUL IV ONE (00:53)
[2018-06-04] MEDS ORDERED: CLINDAMYCIN 600 MG/D5W RTU 600 MG/50 ML RTUPB IV ONE (00:54)
[2018-06-04] MEDS ORDERED: RINGERS SOLUTION,LACTATED 1,000 ML IV ONE (00:55)
--- NOTE | 2018-06-04 01:06 | ER Document Report ---
ED General - General Chief Complaint: Abscess Stated Complaint: ABSCESS Time Seen by Provider: 06/04/18 00:08 Mode of Arrival: Ambulatory Information source: Patient, Relative, [facility] Records Notes: 53-year-old female with hypertension, hyperlipidemia, fibromyalgia, seizures, MRSA, previous history of CVA presents with complaint of facial pain, ear pain and difficulty swallowing. Patient states that 3 days ago she noticed redness on her chin. She states that it started out as a small pimple which she picked. Patient was seen yesterday by my self and a CT was obtained which showed no definitive abscess but a phlegmon. Patient received clindamycin during her ED course yesterday as well as pain medication and reported improvement in her pain. At that time she felt comfortable going home. Patient returns today with worsening pain, swelling and erythema. TRAVEL OUTSIDE OF THE [place] IN LAST 30 DAYS: No - HPI Onset: Other Onset/Duration: Gradual, Persistent, Worse Quality of pain: Throbbing Severity: Severe Pain Level: 4 Associated symptoms: Earache, Fever. denies: Drooling Exacerbated by: Other - Opening her mouth Relieved by: Denies Similar symptoms previously: Yes Recently seen / treated by doctor: Yes - Related Data Allergies/Adverse Reactions: Penicillins Allergy (Unknown, Verified 07/31/17 15:02) rash Past Medical History - General Information source: Patient, Relative, [facility] Records - Social History Smoking Status: Current Every Day Smoker Cigarette use (# per day): Yes - 10 Smoking Education Provided: Yes - Smoking cessation counseling was provided for 4 minutes at the bedside Frequency of alcohol use: None Drug Abuse: None Lives with: Spouse/Significant other Family History: CAD, CVA, Hypertension, Reviewed & Not Pertinent Patient has suicidal ideation: No Patient has homicidal ideation: No - Past Medical History Cardiac Medical History: Reports: Hx Hypercholesterolemia, Hx Hypertension Neurological Medical History: Reports: Hx Seizures Renal/ Medical History: Reports: Hx Kidney Stones. Denies: Hx Peritoneal Dialysis GI Medical History: Reports: Hx Diverticulitis Musculoskeletal Medical History: Reports Hx Arthritis - RA, Reports Hx Fibromyalgia Skin Medical History: Reports Hx Cellulitis Psychiatric Medical History: Reports: Hx Anxiety, Hx Depression - anxiety Traumatic Medical History: Reports: Hx Spine Fracture Past Surgical History: Reports: Hx Section, Hx Orthopedic Surgery - neck x2, Hx Tubal Ligation - Immunizations Hx Diphtheria, Pertussis, Tetanus Vaccination: Yes Review of Systems - Review of Systems Constitutional: Fever EENT: Throat pain, Difficulty swallowing, Throat swelling, Mouth pain Cardiovascular: denies: Chest pain Respiratory: denies: Cough, Hurts to breathe Gastrointestinal: denies: Abdominal pain, Nausea, Vomiting Genitourinary: denies: Dysuria, Flank pain Female Genitourinary: No symptoms reported Musculoskeletal: denies: Back pain Skin: Change in color, Rash, Other - Worsening mandibular swelling with extension of swelling to her neck. Hematologic/Lymphatic: No symptoms reported Neurological/Psychological: denies: Headaches -: Yes All other systems reviewed and negative Physical Exam - Vital signs Vitals: Temp Pulse Resp BP Pulse Ox 99.7 F 114 H 20 148/97 H 96 06/03/18 23:15 06/03/18 23:15 06/03/18 23:15 06/03/18 23:15 06/03/18 23:15 Interpretation: Tachycardic. No: Hypoxic - Notes Notes: PHYSICAL EXAMINATION: GENERAL: Well-appearing, well-nourished and in no acute distress. HEAD: Atraumatic, normocephalic. EYES: Pupils equal round and reactive to light, extraocular movements intact, conjunctiva are normal. ENT: Nares patent, oropharynx clear without exudates. Large area of erythema of the chin and left mandible with extension to the neck. No sublingual edema. No evidence of dental infection. NECK: Normal range of motion, supple without lymphadenopathy LUNGS: Breath sounds clear to auscultation bilaterally and equal. No wheezes rales or rhonchi. HEART: Tachycardic, regular rhythm ABDOMEN: Soft, nontender, nondistended abdomen. No guarding, no rebound. No masses appreciated. Female : deferred Musculoskeletal: Normal range of motion, no pitting or edema. No cyanosis. NEUROLOGICAL: Cranial nerves grossly intact. Normal speech, normal gait. Normal sensory, motor exams PSYCH: Tearful, anxious SKIN: Warm, Dry, normal turgor, no rashes or lesions noted. Course - Re-evaluation Re-evalutation: Laboratory 06/03/18 06/03/18 06/03/18 23:50 23:50 23:50 WBC 14.4 H RBC 4.27 Hgb 12.4 Hct 37.1 MCV 87 MCH 29.0 MCHC 33.4 RDW 15.0 H Plt Count 196 Seg Neutrophils % 80.2 H Lymphocytes % 11.4 L Monocytes % 8.1 Eosinophils % 0.2 Basophils % 0.1 Absolute Neutrophils 11.6 H Absolute Lymphocytes 1.6 Absolute Monocytes 1.2 Absolute Eosinophils 0.0 Absolute Basophils 0.0 PT 13.6 INR 0.99 APTT 29.8 Sodium 140.8 Potassium 3.6 Chloride 104 Carbon Dioxide 27 Anion Gap 10 BUN 7 Creatinine 0.62 Est GFR ( Amer) > 60 Est GFR (Non-Af Amer) > 60 Glucose 111 H Calcium 9.3 Total Bilirubin 0.4 Direct Bilirubin 0.3 Neonat Total Bilirubin Not Reportable Neonat Direct Bilirubin Not Reportable Neonat Indirect Bili Not Reportable AST 24 ALT 19 Alkaline Phosphatase 69 Total Protein 6.5 Albumin 3.[address] 06/04/18 00:55 IMPRESSION: There has been interval progression/worsening associated with the subcutaneous inflammatory changes in the submental, sublingual, and submandibular spaces. Findings likely reflect cellulitis. Diffuse skin thickening. A more defined area of low density is suspicious for developing abscess. There are adjacent, likely reactive lymph nodes. However, the airway remains widely patent. TECHNICAL DOCUMENTATION: Quality ID # 436: Final reports with documentation of one or more dose reduction techniques (e.g., Automated exposure control, adjustment of the mA and/or kV according to patient size, use of iterative reconstruction technique) copyright 2011 [employer]- All Rights Reserved Temp Pulse Resp BP Pulse Ox 99.7 F 114 H 20 165/83 H 98 06/03/18 23:15 06/03/18 23:15 06/03/18 23:15 06/04/18 02:01 06/04/18 03:00 53-year-old female presents for the second time in 2 days with worsening facial infection. Patient was seen by myself yesterday where she was found to have with no evidence of Ludwigs but today presents with worsening swelling, erythema , pain and now with significant extension. Upon arrival patient is tachycardic with a low-grade temp. Vitals reviewed upon arrival and patient is tachycardic , has a low-grade temperature but is not hypoxic or tachypneic. No stridor. Repeat CT of the neck was performed and showed progressive worsening of cellulitis with diffuse skin thickening and a more defined developing abscess. Airway remains patent. Patient received IV fluids, clindamycin, aztreonam, prednisone, Dilaudid. I did speak to ENT who agrees to see the patient in the morning. Advises warm compresses which the patient has been performing. Consult placed. patient has been accepted by the hospitalist for admission. 06/04/18 02:[address] Shankar radiologist for permission to re-scan the patient since it has been 22 hours since her first scan. She is agreeable with repeat scan. 06/04/18 05:10 06/04/18 05:40 - Vital Signs Vital signs: Temp Pulse Resp BP Pulse Ox 99.7 F 114 H 20 165/83 H 98 06/03/18 23:15 06/03/18 23:15 06/03/18 23:15 06/04/18 02:01 06/04/18 03:00 - Laboratory Result Diagrams: 06/03/18 23:50 06/03/18 23:50 Laboratory results interpreted by me: 06/03/18 06/03/18 23:50 23:50 WBC 14.4 H RDW 15.0 H Seg Neutrophils % 80.2 H Lymphocytes % 11.4 L Absolute Neutrophils 11.6 H Glucose 111 H - Diagnostic Test Radiology reviewed: Image reviewed, Reports reviewed Critical Care Note - Critical Care Note Total time excluding time spent on procedures (mins): 30 - Minutes of critical care time spent in direct contact evaluating and reevaluating the patient, treating symptoms, reviewing labs and studies and speaking with family and consultants excluding any procedures Discharge - Discharge Clinical Impression: Facial abscess, Facial cellulitis, Facial pain, Essential hypertension, Trismus Leukocytosis Qualifiers: Leukocytosis type: unspecified Qualified Code(s): D72.829 - Elevated white blood cell count, unspecified Condition: Good Disposition: ADMITTED INPATIENT Admitting Provider: Hospitalist Unit Admitted: Medical Floor
[2018-06-04 01:18] LABS: INTERNATIONAL RATION (INR) 0.99; PROTHROMBIN TIME 13.6 SEC (11.4-15.4)
[2018-06-04 01:19] LABS: PARTIAL THROMBOPLASTIN TIME 29.8 SEC (23.5-35.8)
[2018-06-04 01:21] LABS: ABSOLUTE LYMPHOCYTES (AUTO) 1.6 10^3/uL (0.5-4.7); ABSOLUTE MONOCYTES (AUTO) 1.2 10^3/uL (0.1-1.4); ABSOLUTE NEUT (AUTO) 11.6 10^3/uL (1.7-8.2); BASOPHILS % (AUTO) 0.1 % (0-2); EOSINOPHILS % (AUTO) 0.2 % (0-6); HEMATOCRIT 37.1 % (36.0-47.0); HEMOGLOBIN 12.4 g/dL (12.0-15.5); LYMPHOCYTES % (AUTO) 11.4 % (13-45); MEAN CORPUSCULAR HGB CONC 33.4 g/dL (32.0-36.0); MEAN CORPUSCULAR VOLUME 87 fl (80-97); MONOCYTES % (AUTO) 8.1 % (3-13); PLATELET COUNT 196 10^3/uL (150-450); RED BLOOD COUNT 4.27 10^6/uL (3.72-5.28); SEGMENTED NEUTROPHILS % (AUTO) 80.2 % (42-78); TOTAL CELLS COUNTED % (AUTO) 100 %; WHITE BLOOD COUNT 14.4 10^3/uL (4.0-10.5)
[2018-06-04 01:25] LABS: ALANINE AMINOTRANSFERASE 19 U/L (9-52); ALBUMIN 3.7 g/dL (3.5-5.0); ALKALINE PHOSPHATASE 69 U/L (38-126); ANION GAP 10 (5-19); ASPARTATE AMINO TRANSFERASE 24 U/L (14-36); BILIRUBIN,DIRECT 0.3 mg/dL (0.0-0.4); BILIRUBIN,TOTAL 0.4 mg/dL (0.2-1.3); BLOOD UREA NITROGEN 7 mg/dL (7-20); CALCIUM 9.3 mg/dL (8.4-10.2); CARBON DIOXIDE 27 mmol/L (22-30); CHLORIDE 104 mmol/L (98-107); GLUCOSE 111 mg/dL (75-110); POTASSIUM 3.6 mmol/L (3.6-5.0); SODIUM 140.8 mmol/L (137-145); TOTAL PROTEIN 6.5 g/dL (6.3-8.2)
[2018-06-04] MEDS ORDERED: KETOROLAC TROMETHAMINE INJ/PF 30 MG/1 ML SDV IV ONE (01:48)
[2018-06-04] MEDS ORDERED: HYDROMORPHONE HCL INJ/PF 2 MG/ML AMPULE IV ONE (01:48)
--- NOTE | 2018-06-04 02:41 | RADIOLOGY REPORT (SQ) ---
EXAM DESCRIPTION: CT NECK CHEST WITH IV CONTRAST COMPLETED DATE/TME: 06/04/2018 00:55 CLINICAL HISTORY: 53 years, Female, concern for rick. CREAT 0.49 COMPARISON: Prior CT 06/03/2018. TECHNIQUE: 237 Images stored on PACS. All CT scanners at this facility use dose modulation, iterative reconstruction, and/or weight based dosing when appropriate to reduce radiation dose to as low as reasonably achievable (ALARA). [facility]: Dose Right [facility]: CareDose [facility]: Dose Right [facility]: Teradose 4D [facility]: [employer] LIMITATIONS: None. FINDINGS: Limited evaluation of brain parenchyma is unremarkable. The globes are intact. The paranasal sinuses and mastoid air cells are well aerated. The bilateral parotid and submandibular glands are unremarkable. However, there has been interval slight worsening in the degree of subcutaneous inflammatory change and phlegmon in the submandibular, submental, and sublingual spaces. In addition, a more defined area of low density in the submental space anteriorly measuring 1.3 x 1.4 cm is suspicious for developing abscess. There is diffuse skin thickening consistent with cellulitis. There is adjacent, likely reactive borderline to mildly enlarged submandibular chain and submental chain lymph nodes. Visualized thyroid gland enhances normally. The visualized lung apices are unremarkable. The epiglottis and aryepiglottic folds are normal. The prevertebral soft tissues are normal. Slight prominence of the lingual tonsils however the airway is otherwise widely patent. Subjective swelling of the tongue. Correlate with physical exam. IMPRESSION: There has been interval progression/worsening associated with the subcutaneous inflammatory changes in the submental, sublingual, and submandibular spaces. Findings likely reflect cellulitis. Diffuse skin thickening. A more defined area of low density is suspicious for developing abscess. There are adjacent, likely reactive lymph nodes. However, the airway remains widely patent. TECHNICAL DOCUMENTATION: Quality ID # 436: Final reports with documentation of one or more dose reduction techniques (e.g., Automated exposure control, adjustment of the mA and/or kV according to patient size, use of iterative reconstruction technique) copyright 2010 [employer]- All Rights Reserved
[2018-06-04] MEDS ORDERED: METHYLPREDNISOLONE INJ 125 MG/2 ML SDV IV ONE (03:04)
[2018-06-04] MEDS ORDERED: VANCOMYCIN HCL INJ 1000 MG VIAL IV ONE (03:04)
[2018-06-04] MEDS ORDERED: AZTREONAM INJ 1 GM VIAL IV ONE (03:10)
[2018-06-04] MEDS ORDERED: PREDNISONE 20 MG TABLET PO ONE (03:11)
[2018-06-04] MEDS ORDERED: MAG HYDROX/AL HYDROX/SIMETH SUSP 30 ML UDCUP PO PRN (05:29)
[2018-06-04] MEDS ORDERED: DEXTROSE 40% GEL 15 GM TUBE PO PRN ×2 (05:29)
[2018-06-04] MEDS ORDERED: ONDANSETRON 4 MG TAB.RAPDIS PO PRN (05:29)
[2018-06-04] MEDS ORDERED: ONDANSETRON HCL INJ/PF 4 MG/2 ML SDV IV PRN (05:29)
[2018-06-04] MEDS ORDERED: DEXTROSE 50%-WATER 25 GM/50 ML DISP.SYRIN IV PRN ×2 (05:29)
[2018-06-04] MEDS ORDERED: GLUCAGON,HUMAN RECOMB 1 MG INJ SUBCUT PRN (05:29)
[2018-06-04] MEDS ORDERED: MAGNESIUM HYDROXIDE SUSP 30 ML UDCUP PO PRN (05:29)
[2018-06-04] MEDS ORDERED: VANCOMYCIN HCL INJ 1000 MG VIAL IV SCH (05:45)
[2018-06-04] MEDS ORDERED: ACETAMINOPHEN 650 MG SUPP.RECT PR PRN (05:46)
[2018-06-04] MEDS ORDERED: ALBUTEROL SULFATE 0.083% NEB 2.5 MG/3 ML AMPUL NEB PRN ×2 (05:46→11:44)
[2018-06-04] MEDS ORDERED: ACETAMINOPHEN 325 MG TABLET PO PRN (05:46)
[2018-06-04] MEDS ORDERED: AZTREONAM INJ 1 GM VIAL IV SCH (06:00)
[2018-06-04] MEDS ORDERED: VANCOMYCIN HCL INJ 1000 MG VIAL IV PRN (06:08)
[2018-06-04] MEDS: MORPHINE SULFATE 10 MG/ML INJ IV PRN ×6 (06:24→22:50)
[2018-06-04] MEDS: HEPARIN SOD (PORCINE) 5,000 UNIT/ML 1 ML SYRINGE SUBCUT SCH ×3 (06:25→22:44)
[2018-06-04] MEDS: VANCOMYCIN HCL 1,000 MG in DEXTROSE 5%-WATER 250 ML IV SCH ×2 (06:25→17:37)
[2018-06-04] MEDS ORDERED: CLONAZEPAM 1 MG TABLET PO SCH (10:00)
[2018-06-04] MEDS: AZTREONAM 1 GM in DEXTROSE 5%-WATER 50 ML IV SCH ×2 (10:57→17:10)
[2018-06-04] MEDS: DOCUSATE SODIUM 100 MG CAPSULE PO SCH ×2 (11:30→17:42)
[2018-06-04] MEDS: LISINOPRIL 10 MG TABLET PO SCH (11:31)
[2018-06-04] MEDS: FAMOTIDINE 20 MG TABLET PO SCH ×2 (11:31→22:51)
[2018-06-04] MEDS: SIMVASTATIN 10 MG TABLET PO SCH (11:31)
[2018-06-04] MEDS: TAMSULOSIN HCL 0.4 MG CAP.SR.24H PO SCH (11:31)
[2018-06-04] MEDS: METHYLPREDNISOLONE INJ 40 MG/1 ML SDV IV SCH ×2 (11:37→22:40)
[2018-06-04] MEDS: MUPIROCIN 2% OINTMENT 22 GM TP SCH ×3 (11:38→17:06)
[2018-06-04] MEDS ORDERED: NICOTINE 21 MG/24 HR PATCH.TD24 TD PRN (13:04)
--- NOTE | 2018-06-04 13:05 | PDOC H&P ---
History of Present Illness Admission Date/PCP: 06/04/18 03:25 LUANA ODONNELL Patient complains of: facial swelling History of Present Illness: JUAN CARR is a 53 year old female who presented to the ER with a three day history of progressively worsening erythema, edema, induration and pain in the area under her chin. The area started as a small typical acne blemish which she squeezed three days ago. The area has gradually grown and worsened to where it involves the entire chin, submental area and the adjacent portion of the left lower jaw. The pain is a nonradiating, severe aching pressure, worsened by touch or any pressure to the area. She denies prior similar episodes and has not identified any ameliorating factors for her pain. She had been seen for this problem in the ER 24 hours prior to this visit. In the ER her symptoms and infection had worsened clinically, her WBC was elevated to 14.4 and thus she was admitted for failed outpatient therapy and ENT consultation was obtained. Past Medical History Cardiac Medical History: Reports: Hyperlipidema, Hypertension Pulmonary Medical History: Denies: Asthma, Chronic Obstructive Pulmonary Disease (COPD) EENT Medical History: Reports: None Neurological Medical History: Reports: Seizures Denies: Multiple Sclerosis Endocrine Medical History: Denies: Diabetes Mellitus Type 1, Diabetes Mellitus Type 2, Hyperthyroidism, Hypothyroidism Renal/ Medical History: Denies: Chronic Kidney Disease, Nephrolithiasis Malignancy Medical History: Reports: None GI Medical History: Reports: Diverticulitis Denies: Cirrhosis, Hepatitis Musculoskeltal Medical History: Reports: Arthritis - RA, Fibromyalgia Skin Medical History: Denies: Eczema, Psoriasis Psychiatric Medical History: Reports: Depression, Tobacco Dependency Denies: Alcohol Dependency, Substance Abuse Traumatic Medical History: Reports: None Hematology: Denies: Anemia, Bleeding Tendencies Infectious Medical History: Reports: None Past Surgical History Past Surgical History: Reports: Section, Orthopedic Surgery - neck x2, Tubal Ligation Social History Information Source: Patient Lives with: Spouse/Significant other Smoking Status: Current Every Day Smoker Cigarettes Packs Per Day: 6 Frequency of Alcohol Use: None Hx Recreational Drug Use: No Drugs: None Hx Prescription Drug Abuse: No - Advance Directive Resuscitation Status: Full Code Surrogate healthcare decision maker:: significant other Family History Family History: CAD, CVA, Hypertension Parental Family History Reviewed: Yes Children Family History Reviewed: No Sibling(s) Family History Reviewed.: Yes Medication/Allergy Home Medications: Calcium Carbonate [Calcium] 600 mg PO DAILY 06/04/18 Cephalexin Monohydrate [Keflex 500 mg Capsule] 500 mg PO BID 06/04/18 Cholecalciferol (Vitamin D3) [Vitamin D3 3000 unit Tablet] 3,000 unit PO DAILY 06/04/18 Citalopram Hydrobromide [Celexa] 20 mg PO DAILY 06/04/18 Hydrocodone/Acetaminophen [Longs 5-325 mg Tablet] 1 tab PO Q6HP PRN 06/04/18 Ibuprofen [Motrin 800 mg Tablet] 800 mg PO TIDP PRN 06/04/18 Lisinopril [Zestril] 20 mg PO DAILY 06/04/18 Metoprolol Tartrate [Lopressor 25 mg Tablet] 25 mg PO BID 06/04/18 Simvastatin [Zocor 10 mg Tablet] 10 mg PO QHS 06/04/18 Sulfamethoxazole/Trimethoprim [Bactrim Ds Tablet] 1 tab PO BID 06/04/18 Tramadol HCl [Ultram 50 mg Tablet] 50 mg PO Q8HP PRN 06/04/18 Trazodone HCl [Desyrel] 200 mg PO QHS 06/04/18 Allergies/Adverse Reactions: Penicillins Allergy (Unknown, Verified 07/31/17 15:02) rash Review of Systems Constitutional: ABSENT: chills, fever(s) Eyes: ABSENT: visual disturbances, other - eye pain Ears: ABSENT: hearing changes, other - ear pain Nose, Mouth, and Throat: ABSENT: mouth pain, sore throat Cardiovascular: ABSENT: chest pain, dyspnea on exertion Respiratory: ABSENT: cough, dyspnea Gastrointestinal: ABSENT: abdominal pain, constipation, diarrhea, nausea, vomiting Genitourinary: ABSENT: dysuria, hematuria Musculoskeletal: PRESENT: back pain - chronic. ABSENT: deformity Integumentary: PRESENT: as per HPI, erythema. ABSENT: pruritus, rash Neurological: ABSENT: dizziness, memory loss, syncope, vertigo Psychiatric: ABSENT: anxiety, depression Endocrine: ABSENT: cold intolerance, heat intolerance Hematologic/Lymphatic: ABSENT: easy bleeding, easy bruising Physical Exam Vital Signs: Temp Pulse Resp BP Pulse Ox 97.4 F 98 16 141/80 H 99 06/04/18 09:59 06/04/18 09:59 06/04/18 09:59 06/04/18 09:59 06/04/18 09:59 Intake & Output 06/02/18 06/03/18 06/04/18 23:59 23:59 23:59 Intake Total 300 Balance 300 General appearance: PRESENT: cooperative, mild distress Head exam: PRESENT: atraumatic, normocephalic Eye exam: PRESENT: conjunctiva pink. ABSENT: nystagmus Ear exam: PRESENT: normal external ear exam. ABSENT: bleeding Mouth exam: PRESENT: neck supple. ABSENT: dry mucosa Teeth exam: PRESENT: poor dentation Neck exam: PRESENT: other - Tender and erytematous submental region and lower margin of the left side of the jaw, fluctuance noted on palpation.. ABSENT: JVD , thyromegaly, tracheal deviation Respiratory exam: PRESENT: clear to auscultation julienne, symmetrical, unlabored Cardiovascular exam: PRESENT: RRR. ABSENT: clicks, gallop, rubs Pulses: PRESENT: normal radial pulses, normal dorsalis pedis pul Vascular exam: PRESENT: normal capillary refill. ABSENT: pallor GI/Abdominal exam: PRESENT: normal bowel sounds, soft Rectal exam: PRESENT: deferred Extremities exam: ABSENT: joint swelling, pedal edema Musculoskeletal exam: PRESENT: full ROM, normal inspection Neurological exam: PRESENT: alert, oriented to person, oriented to place, oriented to time, oriented to situation Psychiatric exam: PRESENT: appropriate affect, normal mood Skin exam: PRESENT: dry, intact, warm, other - chin and surrounding area as described above. ABSENT: jaundice, rash, urticaria Results Impressions: Soft Tissue Neck CT 06/04/18 00:55 IMPRESSION: There has been interval progression/worsening associated with the subcutaneous inflammatory changes in the submental, sublingual, and submandibular spaces. Findings likely reflect cellulitis. Diffuse skin thickening. A more defined area of low density is suspicious for developing abscess. There are adjacent, likely reactive lymph nodes. However, the airway remains widely patent. TECHNICAL DOCUMENTATION: Quality ID # 436: Final reports with documentation of one or more dose reduction techniques (e.g., Automated exposure control, adjustment of the mA and/or kV according to patient size, use of iterative reconstruction technique) copyright 2011 [employer]- All Rights Reserved Assessment & Plan - Diagnosis (1) Facial cellulitis Is this a current diagnosis for this admission?: Yes Plan: Empiric antibiotics per ENT request. Morphine Sulfate IV on sliding scale for pain control. (2) Facial abscess Is this a current diagnosis for this admission?: Yes Plan: Empiric antibiotics per ENT request. ENT to I&D abscess today. (3) Tobacco dependence due to cigarettes Is this a current diagnosis for this admission?: Yes Plan: Cessation advised and counselled. Nicotine patch available if desired. (4) Essential hypertension Is this a current diagnosis for this admission?: Yes Plan: Continue current therapy and assess efficacy. - Time Time Spent: 30 to 50 Minutes Critical Time spent with patient: Less than 15 minutes Smoking Cessation Education: 3 to 10 minutes Medications reviewed and adjusted accordingly: Yes Anticipated discharge: Home - Inpatient Certification Based on my medical assessment, after consideration of the patient's comorbidities, presenting symptoms, or acuity I expect that the services needed warrant INPATIENT care.: Yes I certify that my determination is in accordance with my understanding of Medicare's requirements for reasonable and necessary INPATIENT services [42 CFR 412.3e].: Yes Medical Necessity: Failure to Improve With Outpatient Therapy, Need for IV Antibiotics, Need for Surgery
--- NOTE | 2018-06-04 13:52 | PROGRESS NOTE E ---
Progress Note NAME: JUAN CARR : 1965 AGE: 53Y DATE: 06/04/2018 ROOM: 532 SUBJECTIVE: The patient has just arrived to the floor. The patient states that she does feel better than when she came in. Still has tightness in her jaw. Has no conversational dyspnea, does not feel fullness in her throat. Denies any shortness of breath. No wheezing. The patient denies any other symptoms other than the pain that is in her chin. The patient does not voice any other concerns at this time. REVIEW OF SYSTEMS: The rest of the review of systems is negative. MEDICATIONS: Medications have been reviewed. OBJECTIVE: GENERAL: The patient is a 53-year-old female who is awake, alert, and oriented to person, place, time, and situation. She is verbal, conversational, does not appear to be in acute distress. VITAL SIGNS: As follows: Temperature is 97.4, pulse 98, respirations 16, blood pressure 141/80, oxygen saturation 99% on room air. SKIN: Warm and dry. No rash, not diaphoretic. HEENT: Pupils are reactive. The patient does have redness/erythema from the chin which radiates into her cheek. According to the patient it has improved in comparison to when she came in. CARDIOVASCULAR: Heart is regular. There is no murmur or rub. CHEST: Clear, symmetrical, unlabored. ABDOMEN: Soft, nontender, nondistended. BACK: No CVA tenderness or sacral edema. EXTREMITIES: No clubbing, cyanosis, edema. PSYCHIATRIC: Appropriate affect. Pleasant mood. DIAGNOSTICS: Lab values are as follows. Hematology obtained on 06/03/2018: WBCs are 14.4, hemoglobin is 12.4, hematocrit 37.1, platelet count is 196,000. Chemistry obtained on 06/03/2018: Sodium is 140, potassium 3.6, chloride 104, carbon dioxide 27, BUN 7, creatinine 0.62, glucose 111, calcium 9.3, bilirubin 0.4, AST 24, ALT 19, alk phos 69, total protein 6.5, albumin 3.7. IMPRESSION AND PLAN: 1. CELLULITIS OF THE FACE. The patient will be guarded quite closely. Do have concern for developing Kain angina. At this time the patient is maintaining her airway without issue. Currently awaiting inpatient evaluation by ENT. Will schedule Toradol for now to help with anti-inflammatory parts, including expanded IV antibiotic coverage. Follow. 2. HYPERTENSION. Will resume the patient's metoprolol; however, will hold lisinopril to give us some pressure to work with. 3. HYPERLIPIDEMIA. Will hold statin for now. DISPOSITION: THE PATIENT IS A FULL CODE. Pending the patient's symptomatology and diagnostic findings, will re-evaluate in the a.m. Time spent on this followup, including assessment/plan, physical examination, patient education, review of records, and family meeting, is 35 minutes. DICTATING PHYSICIAN: GILBERT LOVELACE NP [id number] PHY#: [id number] ID: [id number] JOB#: [id number] ACCT: [id number] cc: >
[2018-06-04] MEDS: NORMAL SALINE 1000 ML 1,000 ML IV PRN (13:56)
[2018-06-04] MEDS: KETOROLAC TROMETHAMINE INJ/PF 30 MG/1 ML SDV IV SCH ×2 (14:00→17:14)
[2018-06-04] MEDS: CLINDAMYCIN 900 MG/D5W RTU 900 MG/50 ML RTUPB IV SCH ×2 (15:13→22:42)
[2018-06-04] MEDS: METOPROLOL TARTRATE 25 MG TABLET PO SCH ×2 (15:20→22:44)
[2018-06-04] MEDS ORDERED: (PENDING PHARMACY ID) (Trazodone Hcl [Desyrel] 200 MG) PO SCH (22:00)
[2018-06-04] MEDS: TRAZODONE HCL 50 MG TABLET PO SCH ×2 (22:40→22:43)
[2018-06-04] MEDS: CLONAZEPAM 1 MG TABLET PO SCH (22:41)
--- NOTE | 2018-06-04 22:52 | CONSULTATION REPORT E ---
Consultation Report NAME: JUAN CARR : 1965 AGE: 53Y DATE: 06/04/2018 532 A TO: PENG ORELLANA MD FROM: RACHID CHILDRESS M.D. Requesting Physician HISTORY: This is a 53-year-old female who was referred to Otolaryngology head and neck surgery by the emergency room. The patient presented to the emergency room early this morning with facial cellulitis and possible facial abscess. The patient did have a CT scan which identified a submental abscess about 2 x 2 cm in size. The patient was admitted to the hospital and started on vancomycin and aztreonam. The reason for the antibiotic choice is the fact that the patient has been diagnosed with MRSA in the past. The patient states that approximately 3 days ago she noted a pimple on her chin that she tried to express. She states that the redness and pain increased over the ensuing couple of days and she presented to the emergency room. She actually presented to the emergency room the day before and was started on clindamycin but came back the next day because the redness and tenderness increased in size. She does admit to tenderness in the submental area, stating it has increased in intensity and she now presents for evaluation. PHYSICAL EXAM: GENERAL: Patient is in no apparent distress. FACE: Reveals erythema in the mental and submental area with an eschar in the mental area from previous manipulation. The size of the erythema is 5 x 5 cm. The mental/submental area feels palpable consistent with abscess. There is also brawny edema in that area. ORAL CAVITY/OROPHARYNX: Her mouth is normal. Posterior pharynx is normal. No evidence of intraoral abscess. NECK: The lateral necks reveal shotty adenopathy but no extension of the cellulitis to lateral necks. PROCEDURE: After receiving informed consent from the patient and performing a timeout, the mental/submental area was anesthetized using 2% Xylocaine, 100,000 epinephrine. The area was then prepped and draped in a sterile fashion. A 15-blade was then used to make an incision in the mental region in the previous site of attempted expression by the patient. Hemostat was used for blunt dissection. Purulent material was expressed; approximately 3 -4 mL of purulence was expressed from the mental/ submental area. This was sent off for a culture and sensitivity. The wound was then irrigated with copious amounts of normal saline. The wound was then packed with 1/4 inch Iodoform gauze and dressing was applied. The patient tolerated the procedure well without any complications. ASSESSMENT: 1. MENTAL/SUBMENTAL ABSCESS. 2. STATUS POST INCISION AND DRAINAGE OF MENTAL/SUBMENTAL ABSCESS. PLAN: 1. The diagnosis and treatment plan was discussed with the patient, who voiced understanding. 2. Continue with vancomycin and aztreonam. 3. Patient will be evaluated tomorrow and a portion of that packing will be removed. 4. The plan was discussed with the nursing staff. DICTATING PHYSICIAN: PENG ORELLANA M.D. [id number] PHY#: [id number] ID: [id number] JOB#: [id number] ACCT: [id number] cc:PENG ORELLANA MD > MTDD
[2018-06-05] MEDS: NORMAL SALINE 1000 ML 1,000 ML IV PRN ×2 (00:51→23:12)
[2018-06-05] MEDS: KETOROLAC TROMETHAMINE INJ/PF 30 MG/1 ML SDV IV SCH ×5 (00:51→23:06)
[2018-06-05] MEDS: AZTREONAM 1 GM in DEXTROSE 5%-WATER 50 ML IV SCH ×3 (02:31→17:57)
[2018-06-05] MEDS: MORPHINE SULFATE 10 MG/ML INJ IV PRN ×3 (04:51→20:14)
[2018-06-05] MEDS: CLINDAMYCIN 900 MG/D5W RTU 900 MG/50 ML RTUPB IV SCH ×3 (05:31→23:10)
[2018-06-05] MEDS: HEPARIN SOD (PORCINE) 5,000 UNIT/ML 1 ML SYRINGE SUBCUT SCH ×3 (05:32→23:15)
[2018-06-05 06:19] LABS: ABSOLUTE MONOCYTES (AUTO) 0.4 10^3/uL (0.1-1.4); ABSOLUTE NEUT (AUTO) 13.8 10^3/uL (1.7-8.2); BASOPHILS % (AUTO) 0.1 % (0-2); HEMATOCRIT 32.4 % (36.0-47.0); HEMOGLOBIN 10.9 g/dL (12.0-15.5); LYMPHOCYTES % (AUTO) 6.6 % (13-45); MEAN CORPUSCULAR HEMOGLOBIN 29.1 pg (27.0-33.4); MEAN CORPUSCULAR HGB CONC 33.5 g/dL (32.0-36.0); MEAN CORPUSCULAR VOLUME 87 fl (80-97); MONOCYTES % (AUTO) 2.9 % (3-13); PLATELET COUNT 184 10^3/uL (150-450); RED BLOOD COUNT 3.73 10^6/uL (3.72-5.28); RED CELL DISTRIBUTION WIDTH 15.1 % (11.5-14.0); SEGMENTED NEUTROPHILS % (AUTO) 90.4 % (42-78); TOTAL CELLS COUNTED % (AUTO) 100 %; WHITE BLOOD COUNT 15.2 10^3/uL (4.0-10.5)
[2018-06-05] MEDS ORDERED: VANCOMYCIN HCL INJ 1000 MG VIAL ONE (06:24)
[2018-06-05] MEDS: VANCOMYCIN HCL 1,000 MG in DEXTROSE 5%-WATER 250 ML IV SCH (06:36)
[2018-06-05 06:50] LABS: ANION GAP 9 (5-19); BLOOD UREA NITROGEN 11 mg/dL (7-20); CALCIUM 9.3 mg/dL (8.4-10.2); CARBON DIOXIDE 24 mmol/L (22-30); CHLORIDE 101 mmol/L (98-107); GLUCOSE 138 mg/dL (75-110); POTASSIUM 4.7 mmol/L (3.6-5.0); SODIUM 134.2 mmol/L (137-145)
[2018-06-05] MEDS: TAMSULOSIN HCL 0.4 MG CAP.SR.24H PO SCH (09:54)
[2018-06-05] MEDS: CITALOPRAM HYDROBROMIDE 20 MG TABLET PO SCH (09:54)
[2018-06-05] MEDS: CLONAZEPAM 1 MG TABLET PO SCH ×2 (09:54→23:05)
[2018-06-05] MEDS: DOCUSATE SODIUM 100 MG CAPSULE PO SCH ×2 (09:54→17:12)
[2018-06-05] MEDS: LISINOPRIL 10 MG TABLET PO SCH (09:54)
[2018-06-05] MEDS: METOPROLOL TARTRATE 25 MG TABLET PO SCH ×2 (09:54→23:05)
[2018-06-05] MEDS: SIMVASTATIN 10 MG TABLET PO SCH (09:54)
[2018-06-05] MEDS: FAMOTIDINE 20 MG TABLET PO SCH ×2 (09:54→23:15)
[2018-06-05] MEDS: MUPIROCIN 2% OINTMENT 22 GM TP SCH ×3 (11:11→17:58)
--- NOTE | 2018-06-05 13:13 | PROGRESS NOTE E ---
Progress Note NAME: JUAN CARR : 1965 AGE: 53Y DATE: 06/05/2018 ROOM: 532 SUBJECTIVE: The patient is currently lying in bed. She states she feels better today. She is status post I and D of her facial wound. The patient denies any nausea, vomiting, diarrhea. No shortness of breath, dizziness, chest pain. No fevers, chills. The patient has been afebrile. Blood pressure has been in a good range and the patient does not voice any other concerns at this time. The patient does note some fullness in the left side of her jaw, but states that overall the pressure is improved in comparison to yesterday. REVIEW OF SYSTEMS: Rest of review of systems negative. MEDICATIONS: Medications have been reviewed. OBJECTIVE: GENERAL: The patient is a 53-year-old female who is awake, alert, and oriented to person, place, time, and situation. She is verbal, conversational, does not appear to be in any acute distress. VITAL SIGNS: Temperature is 98.7, pulse 67, respirations 16, blood pressure 125/66, oxygen saturation is 97% on room air. SKIN: Warm, dry. No rash. She is not diaphoretic. HEENT: Pupils are reactive. Conjunctiva is pink. The patient does have a dressing over her I and D site. CHEST: Clear, symmetrical, unlabored. CARDIOVASCULAR SYSTEM: Heart is regular. No rub. ABDOMEN: Soft, nontender. EXTREMITIES: No clubbing, cyanosis, edema. PSYCHIATRIC: Appropriate affect, pleasant mood. DIAGNOSTICS: Lab values are as follows: Hematology obtained on 06/05/2018: WBCs are 15.2, hemoglobin is 10.9, hematocrit is 13.4, platelet count is 184,000. Chemistry obtained on 06/05/2018: Sodium is 134, potassium 4.7, chloride is 101, carbon dioxide 24, BUN 11, creatinine is 0.50, glucose 138, calcium is 9.3, magnesium is 1.7, TSH is 0.55. IMPRESSION AND PLAN: 1. CELLULITIS OF THE FACE. The patient will be guarded, of course, today and will monitor for evidence of a developing Kain's Angina. At this time, the patient is able to maintain her airway without issue. No wheezing. Continue scheduled Toradol for anti-inflammatory. Continue IV antibiotic coverage. Currently awaiting culture. Do appreciate ENT. 2. HYPERTENSION. Continue metoprolol and follow. 3. HYPERLIPIDEMIA. The patient is on a statin. DISPOSITION: The patient is a FULL CODE. Pending patient's symptomatology and diagnostic findings, will re-evaluate in the a.m. for possible discharge. Time spent on this followup including assessment, plan, physical examination, patient education, review of records, and family meeting is 25 minutes. DICTATING PHYSICIAN: GILBERT LOVELACE NP [id number] PHY#: [id number] ID: [id number] JOB#: [id number] ACCT: [id number] cc: > MTDD
--- NOTE | 2018-06-05 13:22 | PROGRESS NOTE E ---
Progress Note NAME: JUAN CARR : 1965 AGE: 53Y DATE: 06/05/2018 ROOM: 532 SUBJECTIVE: We had performed an I and D on the patient yesterday. The I and D was of the mental/submental area, which expressed purulent material. Packing was then placed into the wound. Upon visiting the patient this morning, she states that she feels much better. Pain has decreased, and overall she is saying that she feels good. OBJECTIVE: FACE: The dressing is removed over the incision in the mental/submental area. The erythema has greatly decreased. Yesterday, it measured 5 x 5cm; today, it is about 2 x 2 cm. The packing is still in place. There is minimal drainage on the dressing. A small portion of the packing was removed. The dressing was then reapplied. ASSESSMENT: MENTAL/SUBMENTAL ABSCESS, STATUS POST I AND D. PLAN: 1. The diagnosis and treatment plan were discussed with the patient and her family member, who expressed understanding. 2. Continue with the IV antibiotics. 3. Would keep the patient admitted today for another 24 hours of IV antibiotics and can discharge the patient tomorrow with p.o. antibiotics. 4. Explained to the patient and the patient's family member that they are to change the dressing daily, and when they do change that dressing, they can remove a small portion of that packing until it is all removed. Once the packing has been totally removed, then they are to clean that wound with peroxide using a cotton-tipped applicator. The patient and her family member expressed understanding of these instructions. 5. The patient is going to follow up with the ENT clinic; specifically, myself, on Saturday, 11 June, at 8:30 in the morning. They are to call us sooner should they have any questions or concerns. DICTATING PHYSICIAN: PENG ORELLANA M.D. [id number] PHY#: [id number] ID: [id number] JOB#: [id number] ACCT: [id number] cc: > MTDD
[2018-06-05] MEDS: VANCOMYCIN HCL 1,250 MG in DEXTROSE 5%-WATER 250 ML IV SCH (16:12)
[2018-06-05] MEDS: TRAZODONE HCL 50 MG TABLET PO SCH ×2 (23:04→23:14)
[2018-06-06] MEDS: VANCOMYCIN HCL 1,250 MG in DEXTROSE 5%-WATER 250 ML IV SCH ×3 (00:34→15:45)
[2018-06-06] MEDS: MORPHINE SULFATE 10 MG/ML INJ IV PRN ×5 (00:35→21:11)
[2018-06-06] MEDS: AZTREONAM 1 GM in DEXTROSE 5%-WATER 50 ML IV SCH (02:24)
[2018-06-06 04:46] LABS: ABSOLUTE EOSINOPHILS # (AUTO) 0.1 10^3/uL (0.0-0.6); ABSOLUTE LYMPHOCYTES (AUTO) 3.7 10^3/uL (0.5-4.7); ABSOLUTE MONOCYTES (AUTO) 0.8 10^3/uL (0.1-1.4); ABSOLUTE NEUT (AUTO) 5.2 10^3/uL (1.7-8.2); BASOPHILS % (AUTO) 0.2 % (0-2); EOSINOPHILS % (AUTO) 0.6 % (0-6); HEMOGLOBIN 9.9 g/dL (12.0-15.5); LYMPHOCYTES % (AUTO) 37.4 % (13-45); MEAN CORPUSCULAR HEMOGLOBIN 29.5 pg (27.0-33.4); MEAN CORPUSCULAR VOLUME 87 fl (80-97); MONOCYTES % (AUTO) 8.5 % (3-13); PLATELET COUNT 154 10^3/uL (150-450); RED BLOOD COUNT 3.34 10^6/uL (3.72-5.28); RED CELL DISTRIBUTION WIDTH 14.8 % (11.5-14.0); SEGMENTED NEUTROPHILS % (AUTO) 53.3 % (42-78); TOTAL CELLS COUNTED % (AUTO) 100 %; WHITE BLOOD COUNT 9.8 10^3/uL (4.0-10.5)
[2018-06-06 05:02] LABS: ANION GAP 7 (5-19); BLOOD UREA NITROGEN 16 mg/dL (7-20); CALCIUM 8.4 mg/dL (8.4-10.2); CARBON DIOXIDE 25 mmol/L (22-30); CHLORIDE 103 mmol/L (98-107); GLUCOSE 90 mg/dL (75-110); SODIUM 135.3 mmol/L (137-145)
[2018-06-06] MEDS: KETOROLAC TROMETHAMINE INJ/PF 30 MG/1 ML SDV IV SCH ×4 (05:18→23:52)
[2018-06-06] MEDS: CLINDAMYCIN 900 MG/D5W RTU 900 MG/50 ML RTUPB IV SCH ×3 (05:20→21:26)
[2018-06-06] MEDS: HEPARIN SOD (PORCINE) 5,000 UNIT/ML 1 ML SYRINGE SUBCUT SCH ×3 (05:20→21:13)
[2018-06-06] MEDS ORDERED: TRAMADOL HCL 50 MG TABLET PO PRN (10:05)
[2018-06-06] MEDS: SIMVASTATIN 10 MG TABLET PO SCH ×2 (10:26→21:12)
[2018-06-06] MEDS: CITALOPRAM HYDROBROMIDE 20 MG TABLET PO SCH (10:26)
[2018-06-06] MEDS: FAMOTIDINE 20 MG TABLET PO SCH ×2 (10:26→21:12)
[2018-06-06] MEDS: DOCUSATE SODIUM 100 MG CAPSULE PO SCH ×2 (10:26→17:00)
[2018-06-06] MEDS: LISINOPRIL 10 MG TABLET PO SCH (10:27)
[2018-06-06] MEDS: CLONAZEPAM 1 MG TABLET PO SCH ×2 (10:27→21:12)
[2018-06-06] MEDS: METOPROLOL TARTRATE 25 MG TABLET PO SCH ×2 (10:27→21:12)
[2018-06-06] MEDS: TAMSULOSIN HCL 0.4 MG CAP.SR.24H PO SCH (10:28)
[2018-06-06] MEDS: MUPIROCIN 2% OINTMENT 22 GM TP SCH ×3 (10:28→17:01)
[2018-06-06] MEDS: LACTULOSE SYRUP 20 GM/30 ML UDCUP PO SCH ×2 (10:29→13:41)
[2018-06-06] MEDS: LACTOBACILLUS ACIDOPHILUS 250 MG TAB PO SCH ×2 (11:51→17:00)
[2018-06-06 14:51] LABS: VANCOMYCIN,TROUGH 27.3 ug/mL (5.0-20.0)
--- NOTE | 2018-06-06 15:02 | PROGRESS NOTE E ---
Progress Note NAME: JUAN CARR : 1965 AGE: 53Y DATE: 06/06/2018 ROOM: 532 SUBJECTIVE: The patient is currently lying in bed. The patient was quite anxious this morning when she realized that her abscess was growing MRSA. The patient denies any nausea, vomiting, diarrhea. No shortness of breath, dizziness, chest pain. No fevers or chills. The patient has been afebrile, blood pressure has been in a good range, and the patient does not voice any other concerns at this time. REVIEW OF SYSTEMS: The rest of the review of systems is negative. MEDICATIONS: Medications have been reviewed. OBJECTIVE: GENERAL: The patient is a 53-year-old female who is awake, alert. She is oriented to person, place, time, and situation. She is verbal, conversational, does not appear to be in any acute distress. VITAL SIGNS: As follows: Temperature is 97.7, pulse 77, respirations 19, blood pressure is 148/68, oxygen saturation is 100% on room air. SKIN: Warm and dry. No rash. She is not diaphoretic. HEENT: Pupils equal, round, and reactive to light and accommodation. Conjunctivae pink. No evidence of JVP. The patient's dressing is dry and intact. CARDIOVASCULAR: Heart is regular. There is no murmur or rub. CHEST: Clear, symmetrical, unlabored. ABDOMEN: Soft, nontender, nondistended. BACK: No CVA tenderness or sacral edema. EXTREMITIES: No clubbing, cyanosis, edema. PSYCHIATRIC: Appropriate affect. Pleasant mood. DIAGNOSTICS: Lab values are as follows. Hematology obtained on 06/06/2018: WBC 9.8, hemoglobin 9.9, hematocrit 29.0, platelet count is 154,000. Chemistry obtained on 06/06/2018: Sodium is 135, potassium 4.0, chloride 103, carbon dioxide 25, BUN 16, creatinine 0.60, glucose 90, calcium 8.4, magnesium is 1.8. IMPRESSION AND PLAN: 1. MRSA ABSCESS CELLULITIS. The patient did have I and D at the bedside on 06/04/2018 with ENT. Will continue to monitor for evidence of a developing Kain angina. At this time ENT recommends Cleocin as well as vancomycin. Will continue this. Will also continue scheduled Toradol for anti-inflammatory properties. 2. HYPERTENSION. Continue metoprolol and follow. 3. HYPERLIPIDEMIA. The patient is on a statin. DISPOSITION: THE PATIENT IS A FULL CODE. Pending the patient's symptomatology and diagnostic findings, will re-evaluate in the a.m. for possible discharge. Time spent on this followup, including assessment/plan, physical examination, patient education, review of records, and family meeting, is 25 minutes. DICTATING PHYSICIAN: GILBERT LOVELACE NP [id number] [facility]#: [id number] ID: [id number] JOB#: [id number] ACCT: [id number] cc: >
[2018-06-06] MEDS: TRAZODONE HCL 50 MG TABLET PO SCH (21:11)
[2018-06-07] MEDS: MORPHINE SULFATE 10 MG/ML INJ IV PRN ×6 (00:07→20:09)
[2018-06-07 05:27] LABS: ABSOLUTE EOSINOPHILS # (AUTO) 0.1 10^3/uL (0.0-0.6); ABSOLUTE LYMPHOCYTES (AUTO) 2.3 10^3/uL (0.5-4.7); ABSOLUTE MONOCYTES (AUTO) 0.7 10^3/uL (0.1-1.4); ABSOLUTE NEUT (AUTO) 2.5 10^3/uL (1.7-8.2); BASOPHILS % (AUTO) 0.5 % (0-2); EOSINOPHILS % (AUTO) 2.3 % (0-6); HEMATOCRIT 32.2 % (36.0-47.0); HEMOGLOBIN 10.8 g/dL (12.0-15.5); LYMPHOCYTES % (AUTO) 41.2 % (13-45); MEAN CORPUSCULAR HEMOGLOBIN 29.2 pg (27.0-33.4); MEAN CORPUSCULAR HGB CONC 33.6 g/dL (32.0-36.0); MEAN CORPUSCULAR VOLUME 87 fl (80-97); MONOCYTES % (AUTO) 11.6 % (3-13); PLATELET COUNT 200 10^3/uL (150-450); RED CELL DISTRIBUTION WIDTH 15.2 % (11.5-14.0); SEGMENTED NEUTROPHILS % (AUTO) 44.4 % (42-78); TOTAL CELLS COUNTED % (AUTO) 100 %; WHITE BLOOD COUNT 5.7 10^3/uL (4.0-10.5)
[2018-06-07] MEDS: HEPARIN SOD (PORCINE) 5,000 UNIT/ML 1 ML SYRINGE SUBCUT SCH ×3 (05:35→22:15)
[2018-06-07] MEDS: CLINDAMYCIN 900 MG/D5W RTU 900 MG/50 ML RTUPB IV SCH ×2 (05:35→13:25)
[2018-06-07] MEDS: KETOROLAC TROMETHAMINE INJ/PF 30 MG/1 ML SDV IV SCH ×3 (05:35→17:37)
[2018-06-07 05:46] LABS: BLOOD UREA NITROGEN 14 mg/dL (7-20); CALCIUM 8.5 mg/dL (8.4-10.2); GLUCOSE 85 mg/dL (75-110); POTASSIUM 4.2 mmol/L (3.6-5.0)
[2018-06-07 05:53] LABS: CARBON DIOXIDE 27 mmol/L (22-30); CHLORIDE 107 mmol/L (98-107); SODIUM 137.4 mmol/L (137-145)
[2018-06-07 06:21] LABS: ANION GAP 3 (5-19)
[2018-06-07] MEDS: VANCOMYCIN HCL 1,000 MG in DEXTROSE 5%-WATER 250 ML IV SCH ×2 (06:59→17:38)
[2018-06-07] MEDS: METOPROLOL TARTRATE 25 MG TABLET PO SCH ×2 (11:40→22:16)
[2018-06-07] MEDS: CLONAZEPAM 1 MG TABLET PO SCH ×2 (11:40→22:15)
[2018-06-07] MEDS: LISINOPRIL 10 MG TABLET PO SCH (11:41)
[2018-06-07] MEDS: SIMVASTATIN 10 MG TABLET PO SCH ×2 (11:41→22:22)
[2018-06-07] MEDS: FAMOTIDINE 20 MG TABLET PO SCH ×2 (11:41→22:16)
[2018-06-07] MEDS: CITALOPRAM HYDROBROMIDE 20 MG TABLET PO SCH (11:41)
[2018-06-07] MEDS: TAMSULOSIN HCL 0.4 MG CAP.SR.24H PO SCH (11:41)
[2018-06-07] MEDS: DOCUSATE SODIUM 100 MG CAPSULE PO SCH ×2 (11:41→17:37)
[2018-06-07] MEDS: MUPIROCIN 2% OINTMENT 22 GM TP SCH ×3 (11:42→17:38)
[2018-06-07] MEDS: LACTOBACILLUS ACIDOPHILUS 250 MG TAB PO SCH ×2 (11:42→17:37)
--- NOTE | 2018-06-07 18:47 | PROGRESS NOTE E ---
Progress Note NAME: JUAN CARR : 1965 AGE: 53Y DATE: 06/07/2018 ROOM: [facility] SUBJECTIVE: The patient is sitting up in bed. I did change the patient's dressing today. I was unable to appreciate any packing. I was able to take a sterile Q-tip and open the patient's excised area to allow for some purulent drainage. The patient is extremely tender to this area. Still has an area of redness but it is localized to her chin. There has been no reported episode of vomiting nor diarrhea. The patient has been afebrile, blood pressure has been in a good range, and the patient did not voice any other concerns at this time. BRIEF HISTORY: The patient is a very pleasant 53-year-old female who is awake, alert who presented to the emergency department initially on 06/03/2018 due to an abscess on her chin. The patient was prescribed clindamycin and was discharged from the emergency department. However, she represented on 06/04/2018 as it was significantly more involved and had an area of fluid collection that was noted. The patient was seen and evaluated by ENT and underwent an I and D on 06/04/2018. The patient did have a small area of packing. The patient was reevaluated again by ENT on 06/05/2018 and only had about a quarter inch packing left in place. Dressing was changed. The patient's cultures revealed MRSA, therefore, recommendation was to continue vancomycin and clindamycin to this area. This morning the patient is found to be quite tender. I called and discussed the case again with ENT who recommended to continue twice daily dressing changes and to use the sterile Q-tip to ensure the area was open. If the patient is discharged over the weekend she can follow up in his office on Saturday. REVIEW OF SYSTEMS: The rest of review of systems negative. MEDICATIONS: Have been reviewed. OBJECTIVE: GENERAL: The patient is a 53-year-old female who is awake, alert, and oriented to person, time, place, situation. She is verbal, conversational. She does not appear to be in any acute distress. VITAL SIGNS: Temperature is 97.9, pulse 58, respirations 20, blood pressure is 129/71, oxygen saturation is 99% on room air. SKIN: Warm and dry. No rash. She is not diaphoretic. HEENT: Pupils are reactive. Conjunctivae are pink. There is no evidence of JVP. CARDIOVASCULAR: Heart is regular. There is no murmur or rub. CHEST: Clear, symmetrical, unlabored. ABDOMEN: Soft, nontender. EXTREMITIES: There is no edema. PSYCHIATRIC: Appropriate affect, pleasant mood. DIAGNOSTICS: Lab values are as follows - Hematology obtained on 06/07/2018; WBCs are 5.7, hemoglobin is 10.8, hematocrit is 32.2, platelet count is 200,000. Chemistry obtained on 06/07/2018; sodium is 137, potassium 4.2, chloride is 107, carbon dioxide 27, BUN 14, creatinine is 0.64, glucose is 85, calcium is 8.5, magnesium is 1.9. IMPRESSION AND PLAN: 1. MRSA ABSCESS WITH CELLULITIS. The patient is post I and D on 06/04/2018 with ENT. The patient's packing has fallen out. She continues to ooze purulent drainage with her dressing changes. Will continue to monitor today. The patient was seen and evaluated by ENT, should she be discharged tomorrow she can follow up in the office. Will continue to use scheduled Toradol as it does help with her inflammation and follow. 2. HYPERTENSION. Continue metoprolol. 3. HYPERLIPIDEMIA. Continue statin. CODE STATUS: The patient is a full code. DISPOSITION: Depending on the patient's symptomatology and diagnostic findings will reevaluate in the a.m. for possible discharge. TIME SPENT: On this follow up, including assessment and plan, physical examination, patient education, review of records, family meeting, and speciality collaboration is 35 minutes. DICTATING PHYSICIAN: GILBERT LOVELACE NP [id number] PHY#: [id number] ID: [id number] JOB#: [id number] ACCT: [id number] cc: > MTDD
[2018-06-07] MEDS: TRAZODONE HCL 50 MG TABLET PO SCH (22:16)
[2018-06-08] MEDS: CLINDAMYCIN 900 MG/D5W RTU 900 MG/50 ML RTUPB IV SCH ×4 (00:14→22:26)
[2018-06-08] MEDS: KETOROLAC TROMETHAMINE INJ/PF 30 MG/1 ML SDV IV SCH ×5 (00:14→23:11)
[2018-06-08] MEDS: MORPHINE SULFATE 10 MG/ML INJ IV PRN ×6 (00:14→19:20)
[2018-06-08] MEDS: HEPARIN SOD (PORCINE) 5,000 UNIT/ML 1 ML SYRINGE SUBCUT SCH ×3 (05:48→22:20)
[2018-06-08] MEDS: VANCOMYCIN HCL 1,000 MG in DEXTROSE 5%-WATER 250 ML IV SCH ×2 (07:33→18:09)
[2018-06-08] MEDS: SIMVASTATIN 10 MG TABLET PO SCH ×2 (10:29→22:26)
[2018-06-08] MEDS: DOCUSATE SODIUM 100 MG CAPSULE PO SCH ×2 (10:29→18:09)
[2018-06-08] MEDS: TAMSULOSIN HCL 0.4 MG CAP.SR.24H PO SCH (10:29)
[2018-06-08] MEDS: CLONAZEPAM 1 MG TABLET PO SCH ×2 (10:29→22:21)
[2018-06-08] MEDS: METOPROLOL TARTRATE 25 MG TABLET PO SCH ×2 (10:29→22:21)
[2018-06-08] MEDS: LISINOPRIL 10 MG TABLET PO SCH (10:30)
[2018-06-08] MEDS: LACTOBACILLUS ACIDOPHILUS 250 MG TAB PO SCH ×2 (10:30→18:09)
[2018-06-08] MEDS: CITALOPRAM HYDROBROMIDE 20 MG TABLET PO SCH (10:30)
[2018-06-08] MEDS: MUPIROCIN 2% OINTMENT 22 GM TP SCH ×3 (10:33→18:09)
[2018-06-08] MEDS: FAMOTIDINE 20 MG TABLET PO SCH ×2 (10:52→22:21)
--- NOTE | 2018-06-08 14:26 | PDOC PROGRESS REPORT ---
Subjective Progress Note for:: 06/08/18 Subjective:: No adverse events overnight. No new complaints. Her chin is still very tender. She has not had a lot of drainage but she said she still having some drainage. No fevers. Reason For Visit: SUBMENTAL CELLULITIS Physical Exam Vital Signs: Temp Pulse Resp BP Pulse Ox 97.4 F 63 16 157/91 H 98 06/08/18 12:15 06/08/18 12:15 06/08/18 12:15 06/08/18 12:15 06/08/18 12:15 Intake & Output 06/07/18 06/08/18 06/09/18 06:59 06:59 06:59 Intake Total 2100 1926 300 Balance 2100 192 300 Weight 61.961 kg General appearance: PRESENT: no acute distress, cooperative Head exam: PRESENT: other - She has a area about 1.5 cm of induration on her chin, with an open area that has scant amount of some purulent drainage. The area of induration is red and tender to the touch. Respiratory exam: PRESENT: clear to auscultation julienne, unlabored. ABSENT: rales , rhonchi, wheezes Cardiovascular exam: PRESENT: RRR, +S1, +S2 Vascular exam: PRESENT: normal capillary refill GI/Abdominal exam: PRESENT: normal bowel sounds, soft. ABSENT: distended, guarding, rebound, tenderness Extremities exam: ABSENT: clubbing, pedal edema Musculoskeletal exam: PRESENT: normal inspection. ABSENT: deformity Neurological exam: PRESENT: alert, awake, oriented to person, oriented to place , oriented to time, oriented to situation Psychiatric exam: PRESENT: appropriate affect, normal mood Skin exam: PRESENT: dry, warm Results Laboratory Results: 06/07/18 04:06 06/07/18 04:06 Impressions: Soft Tissue Neck CT 06/04/18 00:55 IMPRESSION: There has been interval progression/worsening associated with the subcutaneous inflammatory changes in the submental, sublingual, and submandibular spaces. Findings likely reflect cellulitis. Diffuse skin thickening. A more defined area of low density is suspicious for developing abscess. There are adjacent, likely reactive lymph nodes. However, the airway remains widely patent. TECHNICAL DOCUMENTATION: Quality ID # 436: Final reports with documentation of one or more dose reduction techniques (e.g., Automated exposure control, adjustment of the mA and/or kV according to patient size, use of iterative reconstruction technique) copyright 2011 [employer]- All Rights Reserved Assessment & Plan - Diagnosis (1) Facial abscess Is this a current diagnosis for this admission?: Yes Plan: The wound is growing out MRSA and is sensitive to clindamycin and vancomycin. She should be able to finish a course of oral antibiotics at home. If the area of induration is little bit smaller tomorrow I may consider letting her go home at that point. - Time Time Spent with patient: 15-24 minutes
[2018-06-08] MEDS: TRAZODONE HCL 50 MG TABLET PO SCH (22:20)
[2018-06-09] MEDS: MORPHINE SULFATE 10 MG/ML INJ IV PRN ×3 (04:37→11:09)
[2018-06-09] MEDS: CLINDAMYCIN 900 MG/D5W RTU 900 MG/50 ML RTUPB IV SCH (05:40)
[2018-06-09] MEDS: HEPARIN SOD (PORCINE) 5,000 UNIT/ML 1 ML SYRINGE SUBCUT SCH (05:40)
[2018-06-09] MEDS: KETOROLAC TROMETHAMINE INJ/PF 30 MG/1 ML SDV IV SCH (05:43)
[2018-06-09] MEDS: VANCOMYCIN HCL 1,000 MG in DEXTROSE 5%-WATER 250 ML IV SCH (06:45)
[2018-06-09] MEDS: LISINOPRIL 10 MG TABLET PO SCH (09:40)
[2018-06-09] MEDS: LACTOBACILLUS ACIDOPHILUS 250 MG TAB PO SCH (09:40)
[2018-06-09] MEDS: CLONAZEPAM 1 MG TABLET PO SCH (09:40)
[2018-06-09] MEDS: METOPROLOL TARTRATE 25 MG TABLET PO SCH (09:40)
[2018-06-09] MEDS: CITALOPRAM HYDROBROMIDE 20 MG TABLET PO SCH (09:41)
[2018-06-09] MEDS: TAMSULOSIN HCL 0.4 MG CAP.SR.24H PO SCH (09:41)
[2018-06-09] MEDS: DOCUSATE SODIUM 100 MG CAPSULE PO SCH (09:41)
[2018-06-09] MEDS: FAMOTIDINE 20 MG TABLET PO SCH (09:48)
[2018-06-09] MEDS: MUPIROCIN 2% OINTMENT 22 GM TP SCH (09:48)
[2018-06-09 10:54] VITALS: BP 123/73
--- NOTE | 2018-06-09 18:51 | PDOC DISCHARGE SUMMARY ---
General - Admit/Disc Date/PCP Admission Date/Primary Care Provider: 06/04/18 03:25 LUANA ODONNELL Discharge Date: 06/09/18 - Discharge Diagnosis (1) Facial abscess Is this a current diagnosis for this admission?: Yes Summary: She required incision and drainage and it grew out MRSA that was sensitive to clindamycin. She will finish another week of clindamycin at home along with a probiotic. - Additional Information Resuscitation Status: Full Code Discharge Diet: Regular Discharge Activity: Activity As Tolerated, No tub bath Prescriptions: Clindamycin HCl [Cleocin 150 mg Capsule] 450 mg PO Q6 #84 capsule Lactobacillus Acidophilus [Bacid 250 mg Tablet] 500 mg PO BID #20 tab Home Medications: Calcium Carbonate [Calcium] 600 mg PO DAILY 06/04/18 Cholecalciferol (Vitamin D3) [Vitamin D3 3000 unit Tablet] 3,000 unit PO DAILY 06/04/18 Citalopram Hydrobromide [Celexa] 20 mg PO DAILY 06/04/18 Hydrocodone/Acetaminophen [[place] 5-325 mg Tablet] 1 tab PO Q6HP PRN 06/04/18 Ibuprofen [Motrin 800 mg Tablet] 800 mg PO TIDP PRN 06/04/18 Lisinopril [Zestril] 20 mg PO DAILY 06/04/18 Metoprolol Tartrate [Lopressor 25 mg Tablet] 25 mg PO BID 06/04/18 Simvastatin [Zocor 10 mg Tablet] 10 mg PO QHS 06/04/18 Trazodone HCl [Desyrel] 200 mg PO QHS 06/04/18 Clindamycin HCl [Cleocin 150 mg Capsule] 450 mg PO Q6 #84 capsule 06/09/18 Lactobacillus Acidophilus [Bacid 250 mg Tablet] 500 mg PO BID #20 tab 06/09/18 History of Present Illness History of Present Illness: JUAN CARR is a 53 year old female who presented to the ER with a three day history of progressively worsening erythema, edema, induration and pain in the area under her chin. The area started as a small typical acne blemish which she squeezed three days ago. The area has gradually grown and worsened to where it involves the entire chin, submental area and the adjacent portion of the left lower jaw. The pain is a nonradiating, severe aching pressure, worsened by touch or any pressure to the area. She denies prior similar episodes and has not identified any ameliorating factors for her pain. She had been seen for this problem in the ER 24 hours prior to this visit. In the ER her symptoms and infection had worsened clinically, her WBC was elevated to 14.4 and thus she was admitted for failed outpatient therapy and ENT consultation was obtained. Hospital Course Hospital Course: She was brought and placed on IV antibiotics and ENT was consulted. She wound up having incision and drainage. She required dressing changes with packing. By the time she was discharged she was not requiring any more packing of the wound. She is responded well to antibiotics so far. She will go home with another week of clindamycin along with a probiotic. She was counseled to seek medical attention if she developed any substantial diarrhea. She was also counseled to follow-up with her primary care provider later this week, and she has an appointment scheduled for 3 days from now. Her labs and examination were reassuring and she discharged in good condition. Physical Exam Vital Signs: Temp Pulse Resp BP Pulse Ox 98.1 F 64 16 123/73 97 06/09/18 10:52 06/09/18 10:52 06/09/18 10:52 06/09/18 10:52 06/09/18 10:52 Intake & Output 06/08/18 06/09/18 06/10/18 06:59 06:59 06:59 Intake Total 1925 1475 Balance 192 1475 Weight 61.961 kg 61.7 kg General appearance: PRESENT: no acute distress, cooperative Head exam: PRESENT: other - She has a area about 1 cm of induration on her chin , with an open area that has scant amount of some purulent drainage. The area of induration is pink and tender to the touch, but less so than yesterday. Respiratory exam: PRESENT: clear to auscultation julienne, unlabored. ABSENT: rales , rhonchi, wheezes Cardiovascular exam: PRESENT: RRR, +S1, +S2 Vascular exam: PRESENT: normal capillary refill GI/Abdominal exam: PRESENT: normal bowel sounds, soft. ABSENT: distended, guarding, rebound, tenderness Extremities exam: ABSENT: clubbing, pedal edema Musculoskeletal exam: PRESENT: normal inspection. ABSENT: deformity Neurological exam: PRESENT: alert, awake, oriented to person, oriented to place , oriented to time, oriented to situation Psychiatric exam: PRESENT: appropriate affect, normal mood Skin exam: PRESENT: dry, warm Results Laboratory Results: 06/07/18 04:06 06/07/18 04:06 Impressions: Soft Tissue Neck CT 06/04/18 00:55 IMPRESSION: There has been interval progression/worsening associated with the subcutaneous inflammatory changes in the submental, sublingual, and submandibular spaces. Findings likely reflect cellulitis. Diffuse skin thickening. A more defined area of low density is suspicious for developing abscess. There are adjacent, likely reactive lymph nodes. However, the airway remains widely patent. TECHNICAL DOCUMENTATION: Quality ID # 436: Final reports with documentation of one or more dose reduction techniques (e.g., Automated exposure control, adjustment of the mA and/or kV according to patient size, use of iterative reconstruction technique) copyright 2011 [employer]- All Rights Reserved Qualifiers - * PATIENT BEING DISCHARGED WITH ANY OF THE FOLLOWING DIAGNOSIS: No
== END 2018-06-09 12:37 | disposition home or self-care (01) | DRG 603 ==
LOC: ER 23:11 → EH 06-04 03:25 → 5 06-04 09:30
PROVIDERS: ADMIT Emergency Medicine; ATTEND Emergency Medicine
PROC: 0H91XZX Drainage of Face Skin, External Approach, Diagnostic (ICD-10-PCS; principal; 2018-06-04)
DX: L03.211 Cellulitis of face (principal); L02.01 Cutaneous abscess of face; B95.62 Methicillin resistant Staphylococcus aureus infection as the cause of diseases classified elsewhere; I10 Essential (primary) hypertension; F41.8 Other specified anxiety disorders; E78.5 Hyperlipidemia, unspecified; M79.7 Fibromyalgia; G40.909 Epilepsy, unspecified, not intractable, without status epilepticus; F17.210 Nicotine dependence, cigarettes, uncomplicated; Z71.6 Tobacco abuse counseling; Z86.14 Personal history of Methicillin resistant Staphylococcus aureus infection; Z88.0 Allergy status to penicillin
CPT/HCPCS: 36415; 70491; 80048; 80053; 80202; 83735; 84443; 85025; 85610; 85730; 87040; 87070; 87077; 87186; 87205; 96365; 96375; 99291; 99406; A6266; J1170; J1644; J1885; J2270; J2920; J3010; J3370; J3490; J7030; J7060; J7120; J7512

== ENCOUNTER 2019-02-11 23:33 | Emergency (ER) | payer SELFPAY ==
[2019-02-11 23:55] VITALS: BP 125/64
== END 2019-02-12 00:58 | disposition left against medical advice (07) ==
LOC: ER 23:33
DX: Z53.21 Procedure and treatment not carried out due to patient leaving prior to being seen by health care provider (principal)

== ENCOUNTER 2019-02-13 12:19 | Emergency (ER) | payer SELFPAY ==
--- NOTE | 2019-02-13 13:20 | ER Document Report ---
HPI - HPI Time Seen by Provider: 02/13/19 12:55 Pain Level: 5 Notes: Patient is a 53-year-old female presented to the emergency department chief complaint of low back pain. She reports she feels a knot in the left side of her low back. She states that this has been progressively getting worse over the last few months. She reports that she has had an MRI done here in the past and she was instructed to follow-up for possible surgery with a neurosurgeon. She states that she saw a neurosurgeon who told her that she may need surgery in a few years. Patient denies any incontinence of bowel or bladder, denies any urinary retention. Patient does report there is pain in her low back when she strains for bowel movement but denies any saddle anesthesia or fevers. - REPRODUCTIVE Reproductive: DENIES: : Past Medical History - General Information source: Patient - Social History Smoking Status: Current Every Day Smoker Chew tobacco use (# tins/day): No Frequency of alcohol use: None Drug Abuse: None Family History: CAD, CVA, Hypertension Patient has suicidal ideation: No Patient has homicidal ideation: No - Past Medical History Cardiac Medical History: Reports: Hx Hypercholesterolemia, Hx Hypertension Pulmonary Medical History: Denies: Hx Asthma, Hx COPD Neurological Medical History: Reports: Hx Seizures Endocrine Medical History: Denies: Hx Diabetes Mellitus Type 1, Hx Diabetes Mellitus Type 2, Hx Hyperthyroidism, Hx Hypothyroidism Renal/ Medical History: Reports: Hx Kidney Stones. Denies: Hx Peritoneal Dialysis GI Medical History: Reports: Hx Diverticulitis. Denies: Hx Cirrhosis, Hx Hepatitis Musculoskeletal Medical History: Reports Hx Arthritis - RA, Reports Hx Fibromyalgia Skin Medical History: Reports Hx Cellulitis, Denies Hx Eczema, Denies Hx Psoriasis Psychiatric Medical History: Reports: Hx Anxiety, Hx Depression Traumatic Medical History: Reports: Hx Spine Fracture Infectious Medical History: Denies: Hx Hepatitis Past Surgical History: Reports: Hx Section, Hx Orthopedic Surgery - neck x2, Hx Tubal Ligation - Immunizations Hx Diphtheria, Pertussis, Tetanus Vaccination: Yes Vertical Provider Document - CONSTITUTIONAL Notes: PHYSICAL EXAMINATION: GENERAL: Well-appearing, well-nourished and in no acute distress. HEAD: Atraumatic, normocephalic. EYES: Pupils equal round extraocular movements intact, conjunctiva are normal. ENT: Nares patent NECK: Normal range of motion LUNGS: No respiratory distress Musculoskeletal: Tenderness to palpation to the lumbar paraspinous area on the left side primarily, no vertebral tenderness, step-off or deformity. NEUROLOGICAL: Normal speech. PSYCH: Normal mood, normal affect. SKIN: Warm, Dry, normal turgor, no rashes or lesions noted. - INFECTION CONTROL TRAVEL OUTSIDE OF THE [place] IN LAST 30 DAYS: No Course - Re-evaluation Re-evalutation: Lumbar Spine CT 02/13/19 13:21 IMPRESSION: Left lateral disc protrusion at L5-S1. There is mass effect on the exiting nerve root. Similar findings were noted on prior MRI done in April 2017. Presentation of a well appearing patient complaining of acute on chronic back pain. No rapid progression of symptoms, systemic symptoms including fevers, chills, weight loss, history of recent bacterial infection, bilateral symptoms, numbness, weakness, difficulty walking, urinary retention or bowel incontinence, personal history of cancer, immunosuppression, diabetes, known AAA, or history of IV drug use. Exam is without point tenderness over vertebral bodies, pulsatile abdominal mass, and patient has symmetric and intact lower extremity strength, sensation, and reflexes without clonus. 2+ symmetric medial malleolar and dorsalis pedis pulses Based on history and physical, I have a very low suspicion of a concerning etiology of pain including epidural compression syndrome, spinal infection, transverse myelitis, malignancy, abdominal aortic aneurysm, renal colic, acute lower extremity claudication, neurogenic claudication, ankylosing spondylitis, or other intra-abdominal process. CT was obtained and shows no acute findings. Similar findings were noted on the prior MRI. Patient does report some improvement of her pain after medications here in the emergency department. I do feel it is safe to send patient home at this time and have her follow-up with neurosurgery for further management of this chronic issue. Patient verbalizes understanding and agreement with same. - Vital Signs Vital signs: Temp Pulse Resp BP Pulse Ox 98.3 F 71 18 119/71 93 02/13/19 12:26 02/13/19 12:26 02/13/19 12:26 02/13/19 12:26 02/13/19 12:26 Discharge - Discharge Clinical Impression: Back pain Qualifiers: Back pain location: low back pain Chronicity: chronic Back pain laterality: right Sciatica presence: with sciatica Sciatica laterality: sciatica of right side Qualified Code(s): M54.41 - Lumbago with sciatica, right side Condition: Stable Disposition: HOME, SELF-CARE Additional Instructions: Your CT scan results were very similar to the MRI results that we did previously. With this means is that there is no new injury however considering you are still having symptoms it is probably time to follow-up with a neurosurgeon. I have given you a phone number below for one in the area. In the meanwhile use medications as prescribed, take ibuprofen 600 mg every 6 hours with the muscle relaxer, use the Lidoderm patches to the area 12 hours on 12 hours off. Return to the emergency department if you develop bowel incontinence, urinary retention or develop a fever. [facility] [address] [phone] Prescriptions: Cyclobenzaprine HCl [Flexeril 10 mg Tablet] 10 mg PO TIDP PRN #20 tab PRN Reason: Lidocaine [Lidoderm 5% (700 mg) Transdermal Patch] 1 patch TP DAILY #30 adh..patch Forms: Return to Work Referrals: WILBERTO GILLESPIE PA [Primary Care Provider] - Follow up as needed
[2019-02-13] MEDS ORDERED: KETOROLAC TROMETHAMINE 60 MG/2 ML SDV IM ONE (13:21)
[2019-02-13] MEDS ORDERED: CYCLOBENZAPRINE HCL 10 MG TABLET PO ONE (13:21)
--- NOTE | 2019-02-13 14:10 | RADIOLOGY REPORT (SQ) ---
EXAM DESCRIPTION: CT LUMBAR SPINE WITHOUT COMPLETED DATE/TIME: 02/13/2019 1:56 pm REASON FOR STUDY: left lumbar pain with L leg weakness COMPARISON: MRI lumbar spine dated 05/23/2017 TECHNIQUE: Axial images acquired through the lumbar spine without intravenous contrast. Images revi ewed with lung, soft tissue and bone windows. Reconstructed coronal and sagittal MPR images reviewe d. All images stored on PACS. All CT scanners at this facility use dose modulation, iterative reconstruction, and/or weight based d osing when appropriate to reduce radiation dose to as low as reasonably achievable (ALARA). [facility]: Dose Right [facility]: CareDose [facility]: Dose Right [facility]: Teradose 4D [facility]: Somewhere RADIATION DOSE: mGy. LIMITATIONS: None. FINDINGS: SEGMENTATION: Normal. No transitional anatomy. ALIGNMENT: Normal. VERTEBRAL BODIES: No fractures. No dislocation. No acute findings. DISCS: Study limited by lack of intrathecal contrast. L1-L2: No significant protrusions. No significant stenosis. L2-L3: No significant protrusions. No significant stenosis. L3-L4: No significant protrusions. No significant stenosis. L4-L5: Minimal annular bulging. No central stenosis or foraminal narrowing. L5-S1: Central left paracentral disc extrusion. This is similar to MRI done in April 2017. There is asymmetric mass effect on the left lateral aspect of the thecal sac and left nerve root. PEDICLES, TRANSVERSE PROCESSES: No fractures. No dislocation. No acute findings. FACETS, POSTERIOR ELEMENTS: No fractures. No dislocation. No spinal stenosis. HARDWARE: None in the spine. VISUALIZED RIBS: No fractures. SOFT TISSUES: No significant or acute finding in adjacent soft tissues. OTHER: No other significant finding. IMPRESSION: Left lateral disc protrusion at L5-S1. There is mass effect on the exiting nerve root. Similar findings were noted on prior MRI done in April 2017. TECHNICAL DOCUMENTATION: JOB ID: [id number] Quality ID # [id number]: Final reports with documentation of one or more dose reduction techniques (e.g., Au tomated exposure control, adjustment of the mA and/or kV according to patient size, use of iterative reconstruction technique) 2010 [employer]- All Rights Reserved Reading location - IP/workstation name: [facility]
[2019-02-13 15:09] VITALS: BP 118/68
== END 2019-02-13 15:07 | disposition home or self-care (01) ==
LOC: ER 12:19
DX: M54.41 Lumbago with sciatica, right side (principal); G89.29 Other chronic pain; F17.200 Nicotine dependence, unspecified, uncomplicated; I10 Essential (primary) hypertension
CPT/HCPCS: 99283; 96372; 72131; J1885